=== PATIENT | male | born 1950 | race Caucasian/White ===

== ENCOUNTER 2017-09-13 11:04 | Observation (INO) | payer BC, MEDICARE ==
[2017-09-13] MEDS ORDERED: NITROGLYCERIN OINT 1 INCH/GM PACKET TOPICAL STA (11:30)
[2017-09-13] MEDS ORDERED: ASPIRIN 81 MG PO STA (11:30)
--- NOTE | 2017-09-13 11:33 | ED ---
General Adult HPI - General Chief complaint: Chest Pain Stated complaint: chest pain Time Seen by Provider: 09/13/17 11:20 Source: patient, family, RN notes reviewed Mode of arrival: wheelchair Limitations: no limitations - History of Present Illness Initial comments: Patient is a pleasant [age]-year-old male presenting to the emergency department with palpitations. Onset of symptoms was this morning and symptoms have near resolved at this point. Patient does have a history of similar symptoms years ago associated with atrial fibrillation. Patient did have an ablation twice approximately 15 years ago without any problems since that time. Patient states he may have had some mild discomfort associated earlier. Patient is symptom-free at this time however has felt fatigued today. - Related Data Home Medications Medication Instructions Recorded Confirmed Aspirin 81 mg PO DAILY 09/23/15 09/13/17 Atenolol [Tenormin] 50 mg PO HS 09/23/15 09/13/17 Losartan/Hydrochlorothiazide 1 tab PO DAILY 09/13/17 09/13/17 [Losartan-Hctz 100-25 mg Tab] Potassium 99 mg PO DAILY 09/13/17 09/13/17 amLODIPine [Norvasc] 10 mg PO DAILY 09/13/17 09/13/17 Allergies Allergy/AdvReac Type Severity Reaction Status Date / Time No Known Allergies Allergy Unverified 09/13/17 11:38 Review of Systems ROS Statement: Those systems with pertinent positive or pertinent negative responses have been documented in the HPI. ROS Other: All systems not noted in ROS Statement are negative. Constitutional: Denies: fever Eyes: Denies: eye pain ENT: Denies: ear pain Respiratory: Denies: cough, dyspnea Cardiovascular: Reports: chest pain, palpitations Endocrine: Reports: fatigue Gastrointestinal: Denies: abdominal pain Genitourinary: Denies: dysuria Musculoskeletal: Denies: back pain Skin: Denies: rash Neurological: Denies: weakness Past Medical History Past Medical History: Hypertension Additional Past Medical History / Comment(s): past hx. of an arrythmia History of Any Multi-Drug Resistant Organisms: None Reported Past Surgical History: Cardiac Ablation Additional Past Surgical History / Comment(s): colonoscopy Past Anesthesia/Blood Transfusion Reactions: No Reported Reaction Past Psychological History: No Psychological Hx Reported Smoking Status: Former smoker Past Alcohol Use History: None Reported Past Drug Use History: None Reported - Past Family History Mother Family Medical History: Cancer General Exam Limitations: no limitations General appearance: alert, in no apparent distress Head exam: Present: atraumatic Eye exam: Present: normal appearance, PERRL ENT exam: Present: normal oropharynx Neck exam: Present: normal inspection Respiratory exam: Present: normal lung sounds bilaterally. Absent: chest wall tenderness Cardiovascular Exam: Present: regular rate, normal rhythm, normal heart sounds Expanded Peripheral pulses: 2+: Radial (R), Radial (L), Dorsalis Pedis (R), Dorsalis Pedis (L) GI/Abdominal exam: Present: soft. Absent: tenderness Extremities exam: Present: normal inspection. Absent: pedal edema, calf tenderness Neurological exam: Present: alert Psychiatric exam: Present: normal affect, normal mood Skin exam: Present: normal color Course Vital Signs 09/13/17 09/13/17 09/13/17 11:08 11:21 11:50 Temperature 97.5 F L Pulse Rate 88 90 78 Respiratory 16 Rate Blood Pressure 159/81 165/79 146/87 O2 Sat by Pulse 98 98 99 Oximetry 09/13/17 09/13/17 12:50 13:50 Temperature Pulse Rate 82 86 Respiratory Rate Blood Pressure 163/88 167/88 O2 Sat by Pulse 98 98 Oximetry EKG Findings - EKG Comments: EKG Findings:: Normal sinus rhythm 84. [place] 172. QRS 88. QT 372. QTC 439. Normal axis. Normal QRS. No acute ST change. Medical Decision Making - Medical Decision Making Patient reexamined and resting comfortably in bed. Patient and family updated on results and plan. Case was discussed in detail with Dr. snow, who will admit for Dr. Simons. - Lab Data Result diagrams: 09/13/17 11:55 09/13/17 11:55 Lab Results 09/13/17 09/13/17 09/13/17 Range/Units 11:55 11:55 11:55 WBC 8.4 (3.8-10.6) k/uL RBC 5.09 (4.30-5.90) m/uL Hgb 15.0 (13.0-17.5) gm/dL Hct 44.6 (39.0-53.0) % MCV 87.5 (80.0-100.0) fL MCH 29.5 (25.0-35.0) pg MCHC 33.7 (31.0-37.0) g/dL RDW 14.3 (11.5-15.5) % Plt Count 232 (150-450) k/uL Neutrophils % 85 % Lymphocytes % 8 % Monocytes % 5 % Eosinophils % 1 % Basophils % 0 % Neutrophils # 7.2 (1.3-7.7) k/uL Lymphocytes # 0.7 L (1.0-4.8) k/uL Monocytes # 0.5 (0-1.0) k/uL Eosinophils # 0.1 (0-0.7) k/uL Basophils # 0.0 (0-0.2) k/uL PT (9.0-12.0) sec INR (<1.2) APTT (22.0-30.0) sec Sodium 138 (137-145) mmol/L Potassium 3.7 (3.5-5.1) mmol/L Chloride 101 (98-107) mmol/L Carbon Dioxide 26 (22-30) mmol/L Anion Gap 11 mmol/L BUN 18 (9-20) mg/dL Creatinine 0.78 (0.66-1.25) mg/dL Est GFR (MDRD) Af Amer >60 (>60 ml/min/1.73 sqM) Est GFR (MDRD) Non-Af >60 (>60 ml/min/1.73 sqM) Glucose 112 H (74-99) mg/dL Calcium 9.5 (8.4-10.2) mg/dL Magnesium 1.9 (1.6-2.3) mg/dL Total Bilirubin 0.6 (0.2-1.3) mg/dL AST 32 (17-59) U/L ALT 45 (21-72) U/L Alkaline Phosphatase 67 (38-126) U/L Total Creatine Kinase 153 (55-170) U/L CK-MB (CK-2) 1.4 (0.0-2.4) ng/mL CK-MB (CK-2) Rel Index 0.9 Troponin I <0.012 (0.000-0.034) ng/mL Total Protein 7.6 (6.3-8.2) g/dL Albumin 4.5 (3.5-5.0) g/dL TSH 1.330 (0.465-4.680) mIU/L Free T4 1.18 (0.78-2.19) ng/dL Free T3 pg/mL 5.0 (2.8-5.3) pg/ml 09/13/17 Range/Units 11:55 WBC (3.8-10.6) k/uL RBC (4.30-5.90) m/uL Hgb (13.0-17.5) gm/dL Hct (39.0-53.0) % MCV (80.0-100.0) fL MCH (25.0-35.0) pg MCHC (31.0-37.0) g/dL RDW (11.5-15.5) % Plt Count (150-450) k/uL Neutrophils % % Lymphocytes % % Monocytes % % Eosinophils % % Basophils % % Neutrophils # (1.3-7.7) k/uL Lymphocytes # (1.0-4.8) k/uL Monocytes # (0-1.0) k/uL Eosinophils # (0-0.7) k/uL Basophils # (0-0.2) k/uL PT 10.5 (9.0-12.0) sec INR 1.0 (<1.2) APTT 24.2 (22.0-30.0) sec Sodium (137-145) mmol/L Potassium (3.5-5.1) mmol/L Chloride (98-107) mmol/L Carbon Dioxide (22-30) mmol/L Anion Gap mmol/L BUN (9-20) mg/dL Creatinine (0.66-1.25) mg/dL Est GFR (MDRD) Af Amer (>60 ml/min/1.73 sqM) Est GFR (MDRD) Non-Af (>60 ml/min/1.73 sqM) Glucose (74-99) mg/dL Calcium (8.4-10.2) mg/dL Magnesium (1.6-2.3) mg/dL Total Bilirubin (0.2-1.3) mg/dL AST (17-59) U/L ALT (21-72) U/L Alkaline Phosphatase (38-126) U/L Total Creatine Kinase (55-170) U/L CK-MB (CK-2) (0.0-2.4) ng/mL CK-MB (CK-2) Rel Index Troponin I (0.000-0.034) ng/mL Total Protein (6.3-8.2) g/dL Albumin (3.5-5.0) g/dL TSH (0.465-4.680) mIU/L Free T4 (0.78-2.19) ng/dL Free T3 pg/mL (2.8-5.3) pg/ml - Radiology Data Radiology results: image reviewed (Chest x-ray shows no acute process.) Disposition Clinical Impression: Chest pain, Palpitations Disposition: ADMITTED IP TO THIS [facility] Referrals: Benito Garcia DO [Doctor of Osteopathic Medicine] - 1-2 days Decision Time: 14:21
[2017-09-13 12:06] LABS: Basophils % (A) 0 %; CH 30.1; CHCM 34.5; Eosinophils # (A) 0.1 k/uL (0-0.7); Eosinophils % (A) 1 %; HCT 44.6 % (39.0-53.0); HDW 2.61; Luc # (Auto) 0.08; Luc % (Auto) 1; Lymphocytes # (A) 0.7 k/uL (1.0-4.8); Lymphocytes % (A) 8 %; MCH 29.5 pg (25.0-35.0); MCHC 33.7 g/dL (31.0-37.0); MCV 87.5 fL (80.0-100.0); Mean Platelet Volume 6.8; Monocytes # (A) 0.5 k/uL (0-1.0); Monocytes % (A) 5 %; Neutrophils # (A) 7.2 k/uL (1.3-7.7); Neutrophils % (A) 85 %; RBC 5.09 m/uL (4.30-5.90); RDW 14.3 % (11.5-15.5); WBC 8.4 k/uL (3.8-10.6); WBC (Perox) 8.77
[2017-09-13 12:15] LABS: ALT 45 U/L (21-72); AST 32 U/L (17-59); Alkaline Phosphatase 67 U/L (38-126); Anion Gap 11 mmol/L; Blood Urea Nitrogen 18 mg/dL (9-20); Calcium 9.5 mg/dL (8.4-10.2); Carbon Dioxide 26 mmol/L (22-30); Chloride 101 mmol/L (98-107); Glucose 112 mg/dL (74-99); Magnesium 1.9 mg/dL (1.6-2.3); Non-African American GFR(MDRD) >60 (>60 ml/min/1.73 sqM); Potassium 3.7 mmol/L (3.5-5.1); Sodium 138 mmol/L (137-145); Total Bilirubin 0.6 mg/dL (0.2-1.3); Total Protein 7.6 g/dL (6.3-8.2)
[2017-09-13 12:22] LABS: Partial Thromboplastin Time 24.2 sec (22.0-30.0); Prothrombin Time 10.5 sec (9.0-12.0)
[2017-09-13 12:26] LABS: Creatine Kinase 153 U/L (55-170)
[2017-09-13 12:39] LABS: Creatine Kinase MB 1.4 ng/mL (0.0-2.4); Troponin I <0.012 ng/mL (0.000-0.034)
--- NOTE | 2017-09-13 14:12 | XR ---
EXAMINATION TYPE: XR chest 2V DATE OF EXAM: 09/13/2017 COMPARISON: Prior chest x-ray 04/01/2011 HISTORY: Chest pain, history of atrial fibrillation and ablation TECHNIQUE: Frontal and lateral views of the chest are obtained. FINDINGS: There are overlying cardiac leads and the patient is rotated. No evident airspace disease, pneumothorax, or pleural effusion. Cardiac mediastinal silhouette, pulmonary vascularity and rodrigue ar e stable. Flowing osteophytes anterior to the thoracic vertebral bodies could be due to diffuse idiop athic skeletal hyperostosis. Suspect there is a spinal curvature. Hyperinflation may be indicative of underlying COPD. IMPRESSION: No acute cardiopulmonary process.
[2017-09-13] MEDS ORDERED: NITROGLYCERIN SL TABS 0.4 MG TAB SUBLINGUAL PRN (14:21)
[2017-09-13 14:39] VITALS: RESP 18
[2017-09-13] MEDS: NITROGLYCERIN OINT 1 INCH/GM PACKET TOPICAL SCH ×2 (18:28→23:28)
[2017-09-13 19:04] LABS: Creatine Kinase 122 U/L (55-170)
[2017-09-13 19:16] LABS: Creatine Kinase MB 1.1 ng/mL (0.0-2.4); Troponin I <0.012 ng/mL (0.000-0.034)
[2017-09-13] MEDS ORDERED: ACETAMINOPHEN TAB 325 MG TAB PO PRN (20:17)
[2017-09-13] MEDS ORDERED: ATENOLOL 50 MG TAB PO SCH (21:00)
[2017-09-14 00:17] LABS: Creatine Kinase 124 U/L (55-170)
[2017-09-14 00:29] LABS: Creatine Kinase MB 1.2 ng/mL (0.0-2.4); Troponin I <0.012 ng/mL (0.000-0.034)
[2017-09-14] MEDS ORDERED: MELATONIN 5 MG TABLET PO PRN (03:05)
[2017-09-14] MEDS: NITROGLYCERIN OINT 1 INCH/GM PACKET TOPICAL SCH (06:05)
[2017-09-14 07:04] LABS: Basophils % (A) 0 %; CH 29.7; CHCM 34.1; Eosinophils # (A) 0.1 k/uL (0-0.7); Eosinophils % (A) 1 %; HCT 45.2 % (39.0-53.0); HDW 2.56; HGB 15.2 gm/dL (13.0-17.5); Luc # (Auto) 0.08; Luc % (Auto) 1; Lymphocytes # (A) 0.8 k/uL (1.0-4.8); Lymphocytes % (A) 11 %; MCH 29.4 pg (25.0-35.0); MCHC 33.6 g/dL (31.0-37.0); MCV 87.5 fL (80.0-100.0); Mean Platelet Volume 6.8; Monocytes # (A) 0.5 k/uL (0-1.0); Monocytes % (A) 7 %; Neutrophils # (A) 5.4 k/uL (1.3-7.7); Neutrophils % (A) 79 %; RBC 5.16 m/uL (4.30-5.90); RDW 13.9 % (11.5-15.5); WBC 6.9 k/uL (3.8-10.6); WBC (Perox) 6.78
[2017-09-14 07:13] LABS: Anion Gap 9 mmol/L; Blood Urea Nitrogen 15 mg/dL (9-20); Calcium 9.2 mg/dL (8.4-10.2); Carbon Dioxide 24 mmol/L (22-30); Chloride 105 mmol/L (98-107); Cholesterol 196 mg/dL (<200); Glucose 113 mg/dL (74-99); HDL Cholesterol 51 mg/dL (40-60); Non-African American GFR(MDRD) >60 (>60 ml/min/1.73 sqM); Potassium 3.9 mmol/L (3.5-5.1); Sodium 138 mmol/L (137-145)
--- NOTE | 2017-09-14 07:22 | HP ---
HISTORY AND PHYSICAL DATE OF ADMISSION: 09/13/2017 PRESENTING COMPLAINT: Heart fluttering. HISTORY OF PRESENTING COMPLAINT: This is a pleasant 67-year-old patient of Dr. Deleon who had an ablation about 10 to 15 years ago, he cannot exactly remember. Only the significant history is that of hypertension. This morning, felt a funny heart fluttering sensation. There was no dizziness. No lightheadedness, head started sweating, mild chest discomfort. No radiation. No waxing or waning for short lived. Because of the these symptoms, decided to come into the hospital. Initial EKG was unremarkable, admitted for the same. Patient was able to carry out his chores this morning. REVIEW OF SYSTEMS: CONSTITUTIONAL: None. HEENT: None. RESPIRATORY: None. CARDIOVASCULAR: As above. GASTROINTESTINAL: None. GENITOURINARY: None. MUSCULOSKELETAL: None. DERMATOLOGICAL: None. HEMATOLOGIC: None. LYMPHATIC: None. PSYCHIATRY: None. NEUROLOGICAL: None. PAST MEDICAL HISTORY: Atrial fibrillation with ablation, hypertension. PAST SURGICAL HISTORY: Cardiac ablation, tonsillectomy. SOCIAL HISTORY: Patient smoked for 7 years until the age of 25 one pack a day. No alcohol. FAMILY HISTORY: Skin and ovarian cancer. HOME MEDICATIONS: 1. Norvasc 10 mg a day. 2. Losartan/hydrochlorothiazide 100/25 one tablet p.o. daily. 3. Potassium 99 mg p.o. daily. 4. Tenormin 50 mg p.o. q.h.s. 5. Aspirin 81 mg p.o. daily. ALLERGIES: None. PHYSICAL EXAMINATION: Temperature 97.7, pulse 92, respirations 18, blood pressure 139/88, pulse 94% on room air. GENERAL APPEARANCE: Well built, BMI 32.3, lying in bed comfortable. EYES: Pupils normal. HEENT: Oral cavity normal. NECK: JVD not raised. Mass not palpable. RESPIRATORY: Effort normal. Lungs are clear. CARDIOVASCULAR: First and second sounds normal, no edema. ABDOMEN: Soft, nontender. Liver and spleen not palpable. LYMPHATIC: No lymph nodes palpable in neck or axillae. PSYCHIATRY: Alert and oriented x3. Mood and affect normal. NEUROLOGICAL: Pupils equal. Cranial nerves grossly intact. Power and sensation grossly intact. INVESTIGATIONS: White count 8.4, hemoglobin 15, potassium 3.7. BUN creatinine are normal. Troponin x2 negative. TSH is normal. EKG normal sinus rhythm. ASSESSMENT: 1. This is a patient who presents with the symptoms of palpitations, had an ablation 15 years ago. This could be paroxysmal atrial fibrillation, but nothing has been picked up at now. 2. Obesity, body mass index 32.3. 3. Essential hypertension, more on control. PLAN: Home medications will be resumed. Serial cardiac enzymes are in place. Cardiology was consulted. Care was discussed with the patient. The patient's TSH is normal. The patient should see a dietitian as an outpatient for weight loss measures. MMODL / IJN: [id number] /
[2017-09-14] MEDS ORDERED: ASPIRIN 81 MG PO SCH (09:00)
[2017-09-14] MEDS ORDERED: LOSARTAN-HCTZ 50-12.5 MG 1 EACH TAB PO SCH (09:00)
[2017-09-14] MEDS ORDERED: NON-FORMULARY DRUG (Potassium [Potassium] 99 MG) PO SCH (09:00)
[2017-09-14] MEDS ORDERED: ASPIRIN 325 MG TAB PO SCH (09:00)
[2017-09-14] MEDS ORDERED: ENOXAPARIN 40 MG/0.4 ML SYRINGE SQ SCH (09:00)
[2017-09-14] MEDS ORDERED: amLODIPine 10 MG TAB PO SCH (09:00)
[2017-09-14] MEDS ORDERED: ATORVASTATIN 20 MG TAB PO SCH (09:00)
--- NOTE | 2017-09-14 09:52 | CONS ---
CONSULTATION ATTENDING PHYSICIAN: Dr. Simons Mr. Adame is a 67-year-old male known history of coronary disease, history of atrial fibrillation, hypertension, who has underwent ablation of his atrial fibrillation performed an 2002. He was last seen in our office in air November of this year. He has a history of CAD by a CT angiogram performed in 2010 when he had a mild disease in the LAD. He had a stress test in October of 2016. At that time there was no evidence of stress-induced ischemia. Yesterday while doing the chores at home, he felt different. He felt some palpitation with minimal tightness in the chest. He checked his blood pressure and he found some irregularities. Because of those symptoms, he came into the emergency room and subsequently admitted. He has been active physically without any associated symptoms. His breathing has been stable. He denies any dizziness or syncope. No PND, orthopnea, or peripheral edema. His coronary risk factors are remarkable for hypertension. He is nondiabetic and nonsmoker. His left ventricular systolic function in the past has been stable. He is hyperlipidemic. MEDICATION: His medications at home include amlodipine 10 mg daily, losartan HCT 100-25 mg daily, potassium, Tenormin 50 mg daily, and aspirin once a day. REVIEW OF SYSTEMS: RESPIRATORY SYSTEM: He has no recent wheezing. No cough. No history of documented obstructive lung disease. GI SYSTEM: No recent GI bleeding. No peptic ulcer disease. SYSTEM: No dysuria or hematuria. NERVOUS SYSTEM: No history of stroke or seizure. PHYSICAL EXAMINATION: A 67-year-old male, alert, oriented, in no apparent distress. Blood pressure 141/70 with a heart in the 80s. HEAD: Normocephalic. EYES: Sclerae anicteric. NECK: Good upstroke. No bruit. No jugular venous distention. LUNGS: Clear to auscultation. HEART: Regular rhythm S1, S2. No S3 with systolic murmur heard at the base. No diastolic murmur. No rub. ABDOMEN: Soft, nontender. Positive bowel sounds. No organomegaly. EXTREMITIES: No edema. Intact distal pulses. LAB DATA: BUN and creatinine 15 and 0.77, potassium 3.9, hemoglobin 15.2, white blood cell of 6.9, troponin less than 0.012 for 3 samples. Cholesterol 196, LDL of 128. His thyroid function tests are normal. His EKG was sinus mechanism with no evidence of atrial fibrillation and no acute changes. His chest x-ray shows no evidence of infiltrate. IMPRESSION: 1. Possible arrhythmia in a patient with prior history of atrial fibrillation. There is no documentation of recurrent atrial fibrillation at this point. 2. Symptoms of vague chest discomfort of unclear etiology with no evidence to suggest acute coronary syndrome. 3. History of hypertension. 4. Hyperlipidemia. 5. History of coronary disease by CT angiogram. RECOMMENDATION: From the cardiac standpoint, I will proceed with a stress echocardiogram. I will also obtain an echocardiogram with Doppler. I will initiate treatment with a statin. Depending on the results of this testing, further recommendation will be made. Thank you for this consult. We will follow with you. RAFAELA / IJN: [id number] /
[2017-09-14 11:48] VITALS: BP 153/83; PULSE 84; TEMP 97.6
--- NOTE | 2017-09-14 12:12 | ECHOS ---
Referral Reason:chest pain MEASUREMENTS -------- HEIGHT: 180.3 cm WEIGHT: 104.8 kg BP: 148/70 FINDINGS -------- The patient received intravenous dobutamine in 5 min (low dose 5mcg/kg/min) and 3 minute stages (>5mcg/kg/min) to a maximum of XXmcg/kg/min plus XX mg atropine. Max Heart Rate: 133 % of Max Predicted Heart Rate: 85% Rest Heart Rate: 90 Rest BP: 148/70 Max BP: 165/95 Mets Achieved: 8.5 The test was stopped because the target heart rate was achieved. Sinus rhythm. In response to stress, the ECG showed no ST-T wave changes . In response to stress, the ECG showed no ST-T wave changes . There were normal blood pressure and heart rate responses to stress. LV size, wall thickness and systolic function are normal, with an EF of 60%. At recovery dobutamine stress, there was appropriate augmentation of systolic function of all segments CONCLUSIONS -------- 1. The patient received intravenous dobutamine in 5 min (low dose 5mcg/kg/min) and 3 minute stages (>5mcg/kg/min) to a maximum of XXmcg/kg/min plus XX mg atropine. 2. In response to stress, the ECG showed no ST-T wave changes . 3. No 2D echocardiographic evidence of inducible ischemia to achieved workload. AUTOMATIC BLOCKER: Eber Pabon RDCS MTDD
--- NOTE | 2017-09-14 15:22 | DS ---
DISCHARGE SUMMARY DATE OF ADMISSION: 09/13/17. DATE OF DISCHARGE: 09/14/17. FINAL DIAGNOSES: 1. Palpitation, could be paroxysmal atrial fibrillation or arrhythmias. 2. Obesity, BMI 32.3. 3. Essential hypertension. HOSPITAL COURSE: This is a patient with prior history of ablation and atrial fibrillation, presents with some palpitation. Troponin's were negative. LDL came back at [address] Simeon, underwent a stress echocardiogram that was unremarkable and they okayed the patient to be discharged. On examination, lungs are clear. CARDIOVASCULAR: First and second sounds normal. If the patient has these symptoms coming back again she may need an outpatient Holter monitor. DISCHARGE MEDICATIONS: 1. Aspirin 81 mg a day. 2. Tenormin 50 mg a day. 3. Losartan/hydrochlorothiazide 100/25 1 tab a day. 4. Potassium 99 mg p.o. daily. 5. Norvasc 10 mg p.o. daily. 6. Lipitor 20 mg p.o. daily. Follow up with Dr. Simeon in 10 days. Follow up with Dr. Simons in 1 week. MMODL / IJN: [id number] /
== END 2017-09-14 14:32 | disposition home or self-care (01) ==
LOC: EC 11:04 → 3OBS 14:21
PROVIDERS: ADMIT Hospitalist; ATTEND Hospitalist
DX: R00.2 Palpitations (principal); R07.89 Other chest pain; I10 Essential (primary) hypertension; Z86.79 Personal history of other diseases of the circulatory system; Z68.32 Body mass index [BMI] 32.0-32.9, adult; E66.9 Obesity, unspecified; Z79.82 Long term (current) use of aspirin; Z79.899 Other long term (current) drug therapy; Z87.891 Personal history of nicotine dependence
CPT/HCPCS: 99285 ×2; 96372; 36415; 93005; 93017; 84439; 84481; 80061; 80053; 80048; 82550; 82553; 83735; 84443; 84484; 85025 ×2; 85610; 85730; 71020; G0378 ×2; C8928; C8929; J1650; Q9957; 93306; 93350

== ENCOUNTER 2018-11-17 11:29 | Inpatient (IN) | payer MEDICARE ==
[2018-11-17] MEDS ORDERED: ASPIRIN 81 MG PO STA (11:37)
[2018-11-17] MEDS ORDERED: NITROGLYCERIN OINT 1 INCH/GM PACKET TOPICAL STA (11:37)
--- NOTE | 2018-11-17 11:40 | ED ---
General Adult HPI - General Stated complaint: cardiac issues Time Seen by Provider: 11/17/18 11:29 Source: RN notes reviewed - History of Present Illness Initial comments: This is a 68-year-old male who presents emergency department stating that he had a history of atrial fibrillation about 10 years ago he had ablated hasn't had any problems since per patient states he woke up this morning felt his heart racing he took his pulse and was very fast decided come and be evaluated. Patient states he had little bit of chest pain associated with it but nothing too bad. Patient states it did not radiate anywhere to his neck, back. Patient denied any diaphoretic episodes. Patient seems mildly short of breath. Patient denies any nausea. Patient denied abdominal pain patient denies any vomiting or diarrhea recently. Patient states he has had patient denies any lightheadedness dizziness or near syncopal episode. Patient denies any leg swelling or calf tenderness. - Related Data Home Medications Medication Instructions Recorded Confirmed Aspirin 81 mg PO DAILY 09/23/15 11/17/18 Atenolol [Tenormin] 50 mg PO HS 09/23/15 11/17/18 Losartan/Hydrochlorothiazide 1 tab PO DAILY 09/13/17 11/17/18 [Losartan-Hctz 100-25 mg Tab] amLODIPine [Norvasc] 10 mg PO DAILY 09/13/17 11/17/18 Allergies Allergy/AdvReac Type Severity Reaction Status Date / Time No Known Allergies Allergy Verified 11/17/18 11:56 Review of Systems ROS Statement: Those systems with pertinent positive or pertinent negative responses have been documented in the HPI. ROS Other: All systems not noted in ROS Statement are negative. Past Medical History Past Medical History: Deep Vein Thrombosis (DVT), Hypertension, Pneumonia Additional Past Medical History / Comment(s): past hx. of an arrythmia STATED "WENT INTO AFIB AFTER A COLONOSCOPY" History of Any Multi-Drug Resistant Organisms: None Reported Past Surgical History: Cardiac Ablation, Tonsillectomy Additional Past Surgical History / Comment(s): colonoscopy, ABLATION X2 Past Anesthesia/Blood Transfusion Reactions: No Reported Reaction Additional Past Anesthesia/Blood Transfusion Reaction / Comment(s): "WENT INTO AFIB AFTER COLONOSCOPY" Smoking Status: Former smoker - Past Family History Sister(s) Family Medical History: Cancer Additional Family Medical History / Comment(s): BREAST CANCER Father Family Medical History: Coronary Artery Disease (CAD), Diabetes Mellitus Mother Family Medical History: Cancer Additional Family Medical History / Comment(s): SKIN/OVARIAN General Exam - General Exam Comments Initial Comments: GENERAL: Patient is well-developed and well-nourished. Patient is nontoxic and well- hydrated and is in mild distress. ENT: Neck is soft and supple. No significant lymphadenopathy is noted. Oropharynx is clear. Moist mucous membranes. Neck has full range of motion without eliciting any pain. EYES: The sclera were anicteric and conjunctiva were pink and moist. Extraocular movements were intact and pupils were equal round and reactive to light. Eyelids were unremarkable. PULMONARY: Unlabored respirations. Good breath sounds bilaterally. No audible rales rhonchi or wheezing was noted. CARDIOVASCULAR: Patient is tachycardic and has an irregular rate and rhythm ABDOMEN: Soft and nontender with normal bowel sounds. No palpable organomegaly was noted. There is no palpable pulsatile mass. SKIN: Skin is clear with no lesions or rashes and otherwise unremarkable. NEUROLOGIC: Patient is alert and oriented x3. Cranial nerves II through XII are grossly intact. Motor and sensory are also intact. Normal speech, volume and content. Symmetrical smile. MUSCULOSKELETAL: Normal extremities with adequate strength and full range of motion. No lower extremity swelling or edema. No calf tenderness. LYMPHATICS: No significant lymphadenopathy is noted PSYCHIATRIC: Normal psychiatric evaluation. Course Vital Signs 11/17/18 11:41 Temperature 98.4 F Pulse Rate 84 Respiratory 18 Rate Blood Pressure 124/88 O2 Sat by Pulse 97 Oximetry Medical Decision Making - Medical Decision Making EKG shows atrial fibrillation at 89 bpm versus 90 QT interval 348 QTC is 423. EKG shows no ST segment elevation or depression or T wave abnormalities are noted. I started the patient on heparin. I spoke with Dr. Baker he agreed to admit the patient admitted the patient I consulted cardiology and I continue the heparin on the floor. - Lab Data Result diagrams: 11/17/18 11:41 11/17/18 11:41 Lab Results 11/17/18 11/17/18 11/17/18 Range/Units 11:41 11:41 11:41 WBC 9.7 (3.8-10.6) k/uL RBC 5.34 (4.30-5.90) m/uL Hgb 16.1 (13.0-17.5) gm/dL Hct 46.6 (39.0-53.0) % MCV 87.1 (80.0-100.0) fL MCH 30.2 (25.0-35.0) pg MCHC 34.7 (31.0-37.0) g/dL RDW 12.9 (11.5-15.5) % Plt Count 246 (150-450) k/uL Neutrophils % 83 % Lymphocytes % 9 % Monocytes % 5 % Eosinophils % 1 % Basophils % 0 % Neutrophils # 8.1 H (1.3-7.7) k/uL Lymphocytes # 0.9 L (1.0-4.8) k/uL Monocytes # 0.5 (0-1.0) k/uL Eosinophils # 0.1 (0-0.7) k/uL Basophils # 0.0 (0-0.2) k/uL PT (9.0-12.0) sec INR (<1.2) APTT (22.0-30.0) sec Sodium 138 (137-145) mmol/L Potassium 4.1 (3.5-5.1) mmol/L Chloride 105 (98-107) mmol/L Carbon Dioxide 23 (22-30) mmol/L Anion Gap 10 mmol/L BUN 15 (9-20) mg/dL Creatinine 0.86 (0.66-1.25) mg/dL Est GFR (CKD-EPI)AfAm >90 (>60 ml/min/1.73 sqM) Est GFR (CKD-EPI)NonAf >90 (>60 ml/min/1.73 sqM) Glucose 120 H (74-99) mg/dL Calcium 9.6 (8.4-10.2) mg/dL Magnesium 1.9 (1.6-2.3) mg/dL Total Bilirubin 0.9 (0.2-1.3) mg/dL AST 27 (17-59) U/L ALT 34 (21-72) U/L Alkaline Phosphatase 61 (38-126) U/L Total Creatine Kinase 103 (55-170) U/L CK-MB (CK-2) 1.1 (0.0-2.4) ng/mL CK-MB (CK-2) Rel Index 1.1 Troponin I <0.012 (0.000-0.034) ng/mL Total Protein 7.3 (6.3-8.2) g/dL Albumin 4.4 (3.5-5.0) g/dL 11/17/18 Range/Units 12:30 WBC (3.8-10.6) k/uL RBC (4.30-5.90) m/uL Hgb (13.0-17.5) gm/dL Hct (39.0-53.0) % MCV (80.0-100.0) fL MCH (25.0-35.0) pg MCHC (31.0-37.0) g/dL RDW (11.5-15.5) % Plt Count (150-450) k/uL Neutrophils % % Lymphocytes % % Monocytes % % Eosinophils % % Basophils % % Neutrophils # (1.3-7.7) k/uL Lymphocytes # (1.0-4.8) k/uL Monocytes # (0-1.0) k/uL Eosinophils # (0-0.7) k/uL Basophils # (0-0.2) k/uL PT 10.0 (9.0-12.0) sec INR 0.9 (<1.2) APTT 24.8 (22.0-30.0) sec Sodium (137-145) mmol/L Potassium (3.5-5.1) mmol/L Chloride (98-107) mmol/L Carbon Dioxide (22-30) mmol/L Anion Gap mmol/L BUN (9-20) mg/dL Creatinine (0.66-1.25) mg/dL Est GFR (CKD-EPI)AfAm (>60 ml/min/1.73 sqM) Est GFR (CKD-EPI)NonAf (>60 ml/min/1.73 sqM) Glucose (74-99) mg/dL Calcium (8.4-10.2) mg/dL Magnesium (1.6-2.3) mg/dL Total Bilirubin (0.2-1.3) mg/dL AST (17-59) U/L ALT (21-72) U/L Alkaline Phosphatase (38-126) U/L Total Creatine Kinase (55-170) U/L CK-MB (CK-2) (0.0-2.4) ng/mL CK-MB (CK-2) Rel Index Troponin I (0.000-0.034) ng/mL Total Protein (6.3-8.2) g/dL Albumin (3.5-5.0) g/dL Disposition Clinical Impression: Atrial fibrillation Disposition: ADMITTED IP TO THIS HOSP Referrals: Choco Biggs DO [Primary Care Provider] - 1-2 days Time of Disposition: 13:36
[2018-11-17 12:07] LABS: Basophils % (A) 0 %; Eosinophils # (A) 0.1 k/uL (0-0.7); Eosinophils % (A) 1 %; HCT 46.6 % (39.0-53.0); HGB 16.1 gm/dL (13.0-17.5); Lymphocytes # (A) 0.9 k/uL (1.0-4.8); Lymphocytes % (A) 9 %; MCH 30.2 pg (25.0-35.0); MCHC 34.7 g/dL (31.0-37.0); MCV 87.1 fL (80.0-100.0); Mean Platelet Volume 6.5; Monocytes # (A) 0.5 k/uL (0-1.0); Monocytes % (A) 5 %; Neutrophils # (A) 8.1 k/uL (1.3-7.7); Neutrophils % (A) 83 %; Platelet Count 246 k/uL (150-450); RBC 5.34 m/uL (4.30-5.90); RDW 12.9 % (11.5-15.5); WBC 9.7 k/uL (3.8-10.6)
[2018-11-17] MEDS ORDERED: HEPARIN SODIUM,PORCINE 5,000 UNIT/ML 1 ML VIAL IV ONE (12:15)
[2018-11-17 12:25] LABS: ALT 34 U/L (21-72); AST 27 U/L (17-59); Albumin 4.4 g/dL (3.5-5.0); Alkaline Phosphatase 61 U/L (38-126); Anion Gap 10 mmol/L; Blood Urea Nitrogen 15 mg/dL (9-20); Calcium 9.6 mg/dL (8.4-10.2); Carbon Dioxide 23 mmol/L (22-30); Chloride 105 mmol/L (98-107); Glucose 120 mg/dL (74-99); Magnesium 1.9 mg/dL (1.6-2.3); Potassium 4.1 mmol/L (3.5-5.1); Sodium 138 mmol/L (137-145); Total Bilirubin 0.9 mg/dL (0.2-1.3); Total Protein 7.3 g/dL (6.3-8.2)
[2018-11-17] MEDS: HEPARIN SOD,PORK IN 0.45% NACL 25,000 UNIT in 0.45% NACL 1 250ML.BAG IV SCH (12:30)
[2018-11-17 12:31] LABS: Creatine Kinase 103 U/L (55-170)
--- NOTE | 2018-11-17 12:44 | XR ---
EXAMINATION TYPE: XR chest 2V DATE OF EXAM: 11/17/2018 COMPARISON: Prior chest x-ray 09/13/2017 HISTORY: Chest pain TECHNIQUE: Frontal and lateral views of the chest are obtained. FINDINGS: There is no focal air space opacity, pleural effusion, or pneumothorax seen. Minimal subse gmental atelectatic change or probable scarring present at the lung bases. The cardiac silhouette siz e is within normal limits. Patient is rotated. There are overlying cardiac leads. The osseous structu res are intact. IMPRESSION: No acute cardiopulmonary process.
[2018-11-17 12:45] LABS: Creatine Kinase MB 1.1 ng/mL (0.0-2.4); Troponin I <0.012 ng/mL (0.000-0.034)
[2018-11-17 12:58] LABS: INR 0.9 (<1.2); Partial Thromboplastin Time 24.8 sec (22.0-30.0)
[2018-11-17] MEDS ORDERED: NITROGLYCERIN SL TABS 0.4 MG TAB SUBLINGUAL PRN (13:36)
[2018-11-17 14:13] LABS: Appearance,Urine Clear (Clear); Bilirubin,Urine Negative (Negative); Blood,Urine Negative (Negative); Color,Urine Light Yellow; Glucose,Urine (UA) Negative (Negative); Ketones,Urine Negative (Negative); Leukocyte Esterase,Urine Negative (Negative); Nitrite,Urine Negative (Negative); Protein,Urine Negative (Negative); Specific Gravity,Urine 1.005 (1.001-1.035); Urobilinogen,Urine <2.0 mg/dL (<2.0)
[2018-11-17 18:44] LABS: Creatine Kinase 75 U/L (55-170)
[2018-11-17 18:57] LABS: Creatine Kinase MB 0.9 ng/mL (0.0-2.4); Troponin I <0.012 ng/mL (0.000-0.034)
[2018-11-17] MEDS ORDERED: ACETAMINOPHEN TAB 325 MG TAB PO STA (19:31)
--- NOTE | 2018-11-17 23:16 | P.HPIM ---
History of Present Illness H&P Date: 11/17/18 Chief Complaint: Palpitations/feeling funny in the chest Patient is a 68-year-old male with a known history of atrial fibrillation status post ablation about 15 years ago, hypertension and also history of DVT came to ER with complaints of heart racing of fast and feeling funny in the chest started this morning. Patient has been having flulike symptoms on and off for the past one half month. Patient will call day yesterday with painting and woke up in the morning with heart racing of fast and patient decided to come to ER for evaluation. Denied any complaints of chest pain. No radiation. Patient does have mild short of breath. No nausea vomiting. No diarrhea. No abdominal pain. No headache or dizziness or lightheadedness. No leg swelling. No orthopnea. Patient says that since his ablation never had any problems his heart. No history of coronary artery disease. Does have previous history of smoking and polysubstance use several years ago. Chest x-ray showed no acute cardio pulmonary process. EKG showed atrial fibrillation with ventricular rate of 89 Troponin 2 negative. UA negative. Patient does take atenolol, amlodipine, losartan/hydrochlorothiazide for blood pressure at home. Review of Systems Constitutional: Patient denies any fever or chills . No generalized weakness or weight loss. Abdomen: Patient denied nausea vomiting and diarrhea and abdominal pain. Cardiovascular: Patient denies any chest pain or short of breath. Patient does have palpitations. Respiratory: patient denied any cough is from production. No shortness of breath Neurologic: Patient denied any numbness or tingling headache. Musculoskeletal: Patient denies any complaints of joint swelling or deformity. Skin: Negative Psychiatric: Negative Endocrine: No heat or cold intolerance. No recent weight gain. Genitourinary: No dysuria or hematuria. All other 14 point ROS negative except the above Past Medical History Past Medical History: Atrial Fibrillation, Deep Vein Thrombosis (DVT), Hypertension, Pneumonia Additional Past Medical History / Comment(s): stress test 2017, past falls(rib fx), past lt leg broken-was in traction and had body cast., varicose veins. pt stated has had a pne vaccine but not sure of date, newswriter unable to verify date at time of this admit. History of Any Multi-Drug Resistant Organisms: None Reported Past Surgical History: Cardiac Ablation, Tonsillectomy Additional Past Surgical History / Comment(s): colonoscopy, ABLATION X2, 1970's sx on testical r/t epididymitis, "procedure for ruptured varicose vein". Past Anesthesia/Blood Transfusion Reactions: No Reported Reaction Additional Past Anesthesia/Blood Transfusion Reaction / Comment(s): "WENT INTO [facility] AFTER COLONOSCOPY" Smoking Status: Former smoker - Past Family History Sister(s) Family Medical History: Cancer Additional Family Medical History / Comment(s): BREAST CANCER Father Family Medical History: Coronary Artery Disease (CAD), Diabetes Mellitus Mother Family Medical History: Cancer Additional Family Medical History / Comment(s): SKIN/OVARIAN Medications and Allergies Home Medications Medication Instructions Recorded Confirmed Type Aspirin 81 mg PO DAILY 09/23/15 11/17/18 History Atenolol [Tenormin] 50 mg PO HS 09/23/15 11/17/18 History Losartan/Hydrochlorothiazide 1 tab PO DAILY 09/13/17 11/17/18 History [Losartan-Hctz 100-25 mg Tab] amLODIPine [Norvasc] 10 mg PO DAILY 09/13/17 11/17/18 History Allergies Allergy/AdvReac Type Severity Reaction Status Date / Time No Known Allergies Allergy Verified 11/17/18 11:56 Physical Exam Vitals: Vital Signs Temp Pulse Pulse Resp BP BP Pulse Ox 11/17/18 21:00 76 16 99/54 96 11/17/18 20:46 98.7 F 87 18 143/87 99 11/17/18 17:27 79 13 126/52 95 11/17/18 14:48 97.6 F 74 13 115/75 97 11/17/18 13:41 71 18 127/83 95 11/17/18 11:41 98.4 F 84 18 124/88 97 Intake and Output 11/17/18 11/17/18 11/18/18 14:59 22:59 06:59 Other: Weight 102.058 kg PHYSICAL EXAMINATION: Patient is lying in the bed comfortably, no acute distress, awake alert and oriented.. HEENT: Normocephalic. Neck is supple. Pupils reactive. Nostrils clear. Oral cavity is moist. Ears reveal no drainage. Neck reveals no JVD, carotid bruits, or thyromegaly. CHEST EXAMINATION: Trachea is central. Symmetrical expansion. Lung ramires clear to auscultation and percussion. CARDIAC: Normal S1, S2 with no gallops. No murmurs ABDOMEN: Soft. Bowel sounds normal. No organomegaly. No abdominal bruits. Extremities: reveal no edema. No clubbing or cyanosis Neurologically awake, alert, oriented x3 with well-coordinated movements. No focal deficits noted Skin: No rash or skin lesions. Psychiatric: Coperative. Nonsuicidal Musculoskeletal: No joint swelling or deformity. Normal range of motion. Results CBC & Chem 7: 11/17/18 11:41 11/17/18 11:41 Labs: Abnormal Lab Results - Last 24 Hours (Table) 11/17/18 11/17/18 Range/Units 11:41 11:41 Neutrophils # 8.1 H (1.3-7.7) k/uL Lymphocytes # 0.9 L (1.0-4.8) k/uL Glucose 120 H (74-99) mg/dL Thrombosis Risk Factor Assmnt - DVT/VTE Prophylaxis DVT/VTE Prophylaxis: Pharmacologic Prophylaxis ordered - Choose All That Apply Each Risk Factor Represents 2 Points: Age 61-74 years Thrombosis Risk Factor Assessment Total Risk Factor Score: 2 Thrombosis Risk Factor Assessment Level: Low Risk Assessment and Plan Assessment: Atrial atrial fibrillation with slightly increased ventricular rate History of A. fib status post ablation 15 years ago Hypertension History of DVT Previous history of smoking DVT prophylaxis patient is already on heparin drip Plan: Patient will be continued on telemetry monitoring. Serial EKGs and troponins. Patient will be continued on heparin drip and continue with beta blockers. Cardiology was consulted. We will hold amlodipine and losartan/ hydrochlorothiazide since a blood pressure is within normal limits. Continue to monitor closely. Further recommendations based on the clinical course. Time with Patient: Greater than 30
[2018-11-18 00:28] LABS: Creatine Kinase MB 0.8 ng/mL (0.0-2.4); Troponin I 0.02 ng/mL (0.000-0.034)
[2018-11-18] MEDS ORDERED: METOPROLOL TARTRATE 25 MG TAB PO SCH (09:00)
[2018-11-18] MEDS ORDERED: ASPIRIN 325 MG TAB PO SCH (09:00)
[2018-11-18 09:48] VITALS: RESP 18
[2018-11-18 11:11] VITALS: BP 151/75; PULSE 76; TEMP 98.2
[2018-11-18] MEDS: HEPARIN SOD,PORK IN 0.45% NACL 25,000 UNIT in 0.45% NACL 1 250ML.BAG IV SCH (11:23)
--- NOTE | 2018-11-18 12:02 | CONS ---
CONSULTATION Mr. Capellan is a 68-year-old gentleman with history of hypertension, paroxysmal atrial fibrillation, status post ablation more than 15 years ago, comes to hospital complaining of palpitations. These palpitations have been going on for several hours prior to coming in, was found to be in atrial fibrillation with controlled ventricular rate. Admitted to hospital on IV heparin and Lopressor. He converted to sinus rhythm and has remained in sinus rhythm. At the time of my evaluation this morning, he appears comfortable at rest, free of symptoms, and so far his workup had been negative. Troponins are negative. He had an echo the results are pending at this time. The plan at this stage is to start him on Eliquis 5 mg b.i.d. Continue the beta blockers. Review the echo and discharge him home and pursue his followup in the outpatient setting. I will do a stress test on him and do a monitor down the road. PAST MEDICAL HISTORY: Significant for atrial fibrillation, status post ablation, hypertension. CURRENT MEDICATIONS: At home include Norvasc 10 q. daily, losartan, hydrochlorothiazide 100/25 q. daily, Tenormin 50 q. daily and aspirin. ALLERGIES: There are no known drug allergies. FAMILY HISTORY: Negative for premature coronary artery disease. SOCIAL HISTORY: Negative for smoking, EtOH abuse, or drug abuse. REVIEW OF SYSTEMS: HEENT is unremarkable. CARDIAC: As described above. RESPIRATORY: Negative. GI: Negative. GENITOURINARY: Negative. ALLERGY/IMMUNOLOGY: Negative. SKIN: Negative. MUSCULOSKELETAL: Negative. ENDOCRINE: Negative. DERM: Negative. CONSTITUTIONAL: Negative. ONCOLOGICAL: Negative. The rest of the system review is not relevant. PHYSICAL EXAM: Patient is comfortable at rest. Vital signs are stable. There is no jugular venous distention. Carotid upstroke is normal. There is no bruit. Chest exam reveals good air entry bilaterally. Heart exam reveals first and second heart sounds. No gallop. No murmur. No rub. Abdomen is soft, nontender. Exam of the extremities did not reveal any edema. Peripheral pulses are felt. LABS: Showed that the TSH is normal. Cardiac enzymes are normal. Hemoglobin is normal at 16.1, platelet count is 246. Initial EKG showed atrial fibrillation. ASSESSMENT: 1. Paroxysmal atrial fibrillation. 2. Hypertension. PLAN: Will stop the heparin. Start him on Eliquis 5 b.i.d. Review the echo. Hopefully home tomorrow. MMODL / IJN: [id number] /
[2018-11-18] MEDS ORDERED: APIXABAN 5 MG TAB PO SCH (12:30)
--- NOTE | 2018-11-18 22:25 | P.DS ---
Providers Date of admission: 11/17/18 13:36 Expected date of discharge: 11/18/18 Attending physician: Miller Baker Consults: 11/17/18 13:36 Consult Physician Urgent Consulting Provider: [facility] Consult Reason/Comments: A. fib new onset Do you want consulting provider notified?: Yes Primary care physician: Choco Proctor Hospital Course: Discharge diagnosis Atrial atrial fibrillation with slightly increased ventricular rate. Rate controlled now. Started on anticoagulation History of A. fib status post ablation 15 years ago Hypertension History of DVT Previous history of smoking DVT prophylaxis Hospital course Patient is a 68-year-old male with a known history of atrial fibrillation status post ablation about 15 years ago, hypertension and also history of DVT came to ER with complaints of heart racing of fast and feeling funny in the chest started this morning. Patient has been having flulike symptoms on and off for the past one half month. Patient will call day yesterday with painting and woke up in the morning with heart racing of fast and patient decided to come to ER for evaluation. Denied any complaints of chest pain. No radiation. Patient does have mild short of breath. No nausea vomiting. No diarrhea. No abdominal pain. No headache or dizziness or lightheadedness. No leg swelling. No orthopnea. Patient says that since his ablation never had any problems his heart. No history of coronary artery disease. Does have previous history of smoking and polysubstance use several years ago. Chest x-ray showed no acute cardio pulmonary process. EKG showed atrial fibrillation with ventricular rate of 89 Troponin 2 negative. UA negative. Patient does take atenolol, amlodipine, losartan/hydrochlorothiazide for blood pressure at home. 11/18/2018 Patient denied any complaints of chest pain or shortness of breath. No dizziness or lightheadedness. Patient was converted back to sinus rhythm while in the ER. Seen by cardiology and recommended 2-D echocardiogram and started on anticoagulation in the form of eliquis. Heparin has been discontinued. Patient is stable to be discharged home. PHYSICAL EXAMINATION: Patient is lying in the bed comfortably, no acute distress, awake alert and oriented.. HEENT: Normocephalic. Neck is supple. Pupils reactive. Nostrils clear. Oral cavity is moist. Ears reveal no drainage. Neck reveals no JVD, carotid bruits, or thyromegaly. CHEST EXAMINATION: Trachea is central. Symmetrical expansion. Lung ramires clear to auscultation and percussion. CARDIAC: Normal S1, S2 with no gallops. No murmurs ABDOMEN: Soft. Bowel sounds normal. No organomegaly. No abdominal bruits. Extremities: reveal no edema. No clubbing or cyanosis Neurologically awake, alert, oriented x3 with well-coordinated movements. No focal deficits noted Skin: No rash or skin lesions. Psychiatric: Coperative. Nonsuicidal Musculoskeletal: No joint swelling or deformity. Normal range of motion. . Vital Signs - 24 hr 11/18/18 11/18/18 11/18/18 00:00 04:00 08:00 Temperature 98.3 F 98.1 F Pulse Rate [ 70 82 90 English Professor ] Respiratory 16 16 18 Rate Blood Pressure 101/59 137/66 156/75 [Right Arm Supine] O2 Sat by Pulse 97 96 96 Oximetry 11/18/18 11:11 Temperature 98.2 F Pulse Rate [ 76 English Professor ] Respiratory 18 Rate Blood Pressure 151/75 [Right Arm Supine] O2 Sat by Pulse 97 Oximetry Patient Condition at Discharge: Stable Plan - Discharge Summary Discharge Rx Participant: No New Discharge Prescriptions: New Apixaban [Eliquis] 5 mg PO BID #60 tab Continue Aspirin 81 mg PO DAILY Atenolol [Tenormin] 50 mg PO HS amLODIPine [Norvasc] 10 mg PO DAILY Losartan/Hydrochlorothiazide [Losartan-Hctz 100-25 mg Tab] 1 tab PO DAILY Discharge Medication List Aspirin 81 mg PO DAILY 09/23/15 [History] Atenolol [Tenormin] 50 mg PO HS 09/23/15 [History] Losartan/Hydrochlorothiazide [Losartan-Hctz 100-25 mg Tab] 1 tab PO DAILY [History] amLODIPine [Norvasc] 10 mg PO DAILY 09/13/17 [History] Apixaban [Eliquis] 5 mg PO BID #60 tab 11/18/18 [Rx] Follow up Appointment(s)/Referral(s): John Simeon MD [STAFF PHYSICIAN] - 12/02/18 9:30 am Choco Biggs DO [Primary Care Provider] - 11/28/18 11:00 am (With Penelope BURT ) Patient Instructions/Handouts: A-fib (Atrial Fibrillation) (DC), Safe Use of Anticoagulants (DC) Activity/Diet/Wound Care/Special Instructions: pts monthly copay for Xarelto or Eliquis is $40. Discharge Disposition: HOME SELF-CARE
--- NOTE | 2018-11-19 06:36 | ECHOF ---
Referral Reason:lv function MEASUREMENTS -------- HEIGHT: 182.9 cm WEIGHT: 101.6 kg BP: RVIDd: 4.2 cm (< 3.3) IVSd: 1.3 cm (0.6 - 1.1) LVIDd: 4.2 cm (3.9 - 5.3) LVPWd: 1.3 cm (0.6 - 1.1) IVSs: 2.2 cm LVIDs: 2.0 cm LVPWs: 1.8 cm Ao Diam: 3.5 cm (2.0 - 3.7) AV Cusp: 2.1 cm (1.5 - 2.6) LA Diam: 3.7 cm (2.7 - 3.8) MV E Gurwinder: 0.78 m/s MV DecT: 210 ms MV A Gurwinder: 0.39 m/s MV E/A Ratio: 2.00 RAP: 5.00 mmHg RVSP: 8.46 mmHg FINDINGS -------- Sinus rhythm. This was a technically difficult study with suboptimal views. The left ventricular size is normal. There is mild concentric left ventricular hypertrophy. Overa ll left ventricular systolic function is normal with, an EF between 55 - 60 %. The right ventricle is severely enlarged. The left atrial size is normal. The right atrium is normal in size. Lumason used The aortic valve is trileaflet and appears structurally normal. Mild mitral regurgitation is present. Mild tricuspid regurgitation present. The right ventricular systolic pressure, as measured by Doppl er, is 8.46mmHg. Not well quantified. Pulmonic valve appears structurally normal. The aortic root size is normal. The pericardium is normal. CONCLUSIONS -------- 1. Sinus rhythm. 2. This was a technically difficult study with suboptimal views. 3. The left ventricular size is normal. 4. There is mild concentric left ventricular hypertrophy. 5. Overall left ventricular systolic function is normal with, an EF between 55 - 60 %. 6. The right ventricle is severely enlarged. 7. The left atrial size is normal. 8. The right atrium is normal in size. 9. Lumason used 10. The aortic valve is trileaflet and appears structurally normal. 11. Mild mitral regurgitation is present. 12. Mild tricuspid regurgitation present. 13. The right ventricular systolic pressure, as measured by Doppler, is 8.46mmHg. 14. Pulmonic valve appears structurally normal. 15. The aortic root size is normal. 16. The pericardium is normal. GREEN CHAINER: Susan Christopher RDCS
[2018-11-19] MEDS ORDERED: LOSARTAN-HCTZ 50-12.5 MG 1 EACH TAB PO SCH (09:00)
[2018-11-19] MEDS ORDERED: amLODIPine 10 MG TAB PO SCH (09:00)
== END 2018-11-18 16:28 | disposition home or self-care (01) | DRG 310 ==
LOC: EC 11:29 → 3SCARD 13:36
PROVIDERS: ADMIT Internal Medicine; ATTEND Internal Medicine
DX: I48.0 Paroxysmal atrial fibrillation (principal); I10 Essential (primary) hypertension; I83.90 Asymptomatic varicose veins of unspecified lower extremity; F19.11 Other psychoactive substance abuse, in remission; Z79.82 Long term (current) use of aspirin; Z79.899 Other long term (current) drug therapy; Z87.891 Personal history of nicotine dependence; Z86.718 Personal history of other venous thrombosis and embolism; Z87.01 Personal history of pneumonia (recurrent); Z87.81 Personal history of (healed) traumatic fracture; Z80.3 Family history of malignant neoplasm of breast; Z82.49 Family history of ischemic heart disease and other diseases of the circulatory system; Z83.3 Family history of diabetes mellitus; Z80.41 Family history of malignant neoplasm of ovary; Z80.8 Family history of malignant neoplasm of other organs or systems
CPT/HCPCS: 36415; 71046; 80053; 80061; 81003; 82550; 82553; 83735; 84443; 84484; 85025; 85610; 85730; 87502; 93005; 93306; 96365; 96366; 96376; 99285

== ENCOUNTER 2019-02-16 06:30 | Day surgery (SDC) | payer MEDICARE ==
[2019-02-16] MEDS ORDERED: SODIUM CHLORIDE 0.9% 1,000 ML IV SCH (06:47)
--- NOTE | 2019-02-16 07:54 | P.PCN ---
Preoperative Diagnosis: Diagnosis Atrial tachycardia with RVR, symptomatic History of 2 A. fib ablations of the [facility] almost 15 years back Procedure Procedure was canceled because he converted back to sinus rhythm but yesterday at start flecainide 100 mg twice daily. He has a normal 2-D echo and Doppler study with preserved systolic function and normal stress test . Twelve-lead ECG shows sinus rhythm with a normal [place] interval narrow QRS normal ST segments on flecainide 100 mg twice daily after 2 doses he is also on atenolol Plan Continue ELIQUIS Reduce flecainide to 50 g twice daily Continue atenolol Continue Norvasc and continue losartan and have to thiazide for hypertension management Consider atrial tachycardia ablation with uninterrupted ELIQUIS Patient was. Flecainide 7 days before the procedure He will undergo an EP study to induce atrial tachycardia followed by mapping and frequency ablation if inducible He was seen in the office in about 4 weeks. A Holter monitor will be ordered
== END 2019-02-16 08:18 | disposition home or self-care (01) ==
LOC: CATHCVL 06:30
PROVIDERS: ATTEND Internal Medicine Clinical Cardiac Electrophysiology
DX: I47.1 Supraventricular tachycardia (principal); I10 Essential (primary) hypertension; Z53.8 Procedure and treatment not carried out for other reasons; Z98.890 Other specified postprocedural states; Z79.01 Long term (current) use of anticoagulants; Z79.899 Other long term (current) drug therapy

== ENCOUNTER 2019-04-04 10:50 | Day surgery (SDC) | payer MEDICARE ==
[2019-03-29 14:19] VITALS: BMI 30.7
[2019-04-04] MEDS ORDERED: FUROSEMIDE 10 MG/ML 2 ML VIAL ONE (12:26)
[2019-04-04] MEDS ORDERED: MIDAZOLAM 2 MG/2 ML VIAL ONE (12:26)
[2019-04-04] MEDS ORDERED: NEOSTIGMINE 1 MG/ML 10 ML VIAL ONE (12:26)
[2019-04-04] MEDS ORDERED: SUCCINYLCHOLINE CHLORIDE 100 MG/5 ML SYR IV ONE (12:26)
[2019-04-04] MEDS ORDERED: HYDROmorphone (PF) 1 MG/ML ONE (12:26)
[2019-04-04] MEDS ORDERED: IV FLUID CONTINUATION 600 ML IV ONE (12:26)
[2019-04-04] MEDS ORDERED: PROPOFOL 10 MG/ML 20 ML VIAL IV ONE (12:26)
[2019-04-04] MEDS ORDERED: fentaNYL (PF) 50 MCG/ML 2 ML AMP ONE (12:26)
[2019-04-04] MEDS ORDERED: PHENYLEPHRINE-0.9% NACL SYG 1 MG/10 ML SYRINGE ONE (12:26)
[2019-04-04] MEDS ORDERED: HEPARIN SODIUM,PORCINE 10,000 UNIT/ML 1 ML VIAL ONE (12:26)
[2019-04-04] MEDS ORDERED: ROCURONIUM BROMIDE 10 MG/ML 10 ML VIAL IV ONE (12:26)
[2019-04-04] MEDS ORDERED: HEPARIN SODIUM,PORCINE 5,000 UNIT/ML 1 ML VIAL ONE (12:26)
[2019-04-04] MEDS ORDERED: GLYCOPYRROLATE 0.2 MG/ML 2 ML VIAL ONE (12:26)
[2019-04-04] MEDS ORDERED: PROTAMINE SULFATE 10 MG/ML 5 ML VIAL IV ONE (12:26)
[2019-04-04] MEDS ORDERED: IV FLUID CONTINUATION 900 ML IV ONE (12:26)
[2019-04-04] MEDS ORDERED: LIDOCAINE 1% INJ 10MG/ML (20 ML MDV) ONE (12:40)
[2019-04-04] MEDS ORDERED: HEPARIN SODIUM 1,000 UN/ML (10ML VL) ONE (13:13)
[2019-04-04] MEDS ORDERED: LIDOCAINE 1% INJ 10MG/ML (20 ML MDV) SQ ONE (13:18)
[2019-04-04] MEDS ORDERED: HEPARIN SOD,PORK IN 0.45% NACL 25,000 UNIT in 0.45% NACL 1 250ML.BAG IV ONE (13:19)
[2019-04-04] MEDS ORDERED: IOPAMIDOL-370 50ML BTL INJ ONE (15:06)
[2019-04-04] MEDS ORDERED: HEPARIN SODIUM (1,000 UNIT/ML) 1,000 UNIT in SODIUM CHLORIDE 0.9% 1,000 ML IRRIGATION ONE ×2 (15:07→18:58)
[2019-04-04] MEDS ORDERED: LACTATED RINGERS 1,000 ML IV ONE ×2 (16:31→18:57)
[2019-04-04] MEDS ORDERED: HYDROcodone/APAP 5-325MG 1 EACH TAB PO PRN (19:46)
[2019-04-04] MEDS ORDERED: ACETAMINOPHEN TAB 325 MG TAB PO PRN (19:46)
[2019-04-04] MEDS ORDERED: FUROSEMIDE 10 MG/ML 4 ML VIAL ONE (19:47)
[2019-04-04] MEDS ORDERED: FUROSEMIDE 10 MG/ML 4 ML VIAL IV ONE (19:48)
--- NOTE | 2019-04-04 20:02 | P.PCN ---
Preoperative Diagnosis: Diagnosis Atrial fibrillation, symptomatic, refractory to therapy Result Successful pulmonary vein isolation of all veins using cryo-ablation Complete entrance block in all 4 veins confirmed No evidence for phrenic nerve injury Esophageal deflection YES Electrical cardioversion with a synchronized shock across the chest NO Procedure details Patient was brought to the EP lab in a fasting state. Written informed consent was obtained prior to the procedure. Procedure performed under general anesthesia After initial muscle relaxant use, muscle relaxants were not given thereafter in order to assess phrenic nerve during procedure. Patient prepped and draped as per protocol Full cryo-set up with standard preparation of the cryoablation tools done. Femoral Venous access obtained on the right and left groins Venous and arterial Sheaths placed. Diagnostic catheters for the high right atrium, phrenic nerve stimulation and pacing, His bundle, RV and coronary sinus placed Intracardiac echo catheter placed. Long sheath placed in the right atrium Left and right transseptal catheterization performed under intracardiac echo guidance. Intravenous heparin with aCT above 300 Later, catheter positioning and balloon positioning in the left atrium, under intracardiac echo guidance Diagnostic EP study with Drug infusion, Isuprel Coronary sinus pacing and recording Baseline measurements Sinus cycle length 806 ms, MI interval 176 ms, QRS 110 ms and QT interval 391 ms AH interval 95 ms and HV interval 30 ms Atrial pacing performed from the high right atrium and the coronary sinus RV pacing Sinus recovery times a 600 504 100 ms were 1318, 1366 and 1547 ms. Corresponding to sinus node recovery times were the upper limits of normal Low slow pathway conduction No accessory pathway conduction AV node Wenckebach block 460 ms VA Wenckebach block 500 ms Atrial extra stimulation of reflexes to lie from multiple sites performed Burst stimulation performed on and off Isuprel On Isuprel atrial tachycardia induced This terminated while the left atrium is being mapped but then reinitiated with atrial extra stimulation Transseptal catheterization performed RA pressure 14/5/10 LA pressure 22/5/13 Transseptal catheterization performed with standard sheath. The cryoablation sheath was then placed with an over the wire exchange without any acute complications. All 4 pulmonary veins were isolated in the following sequence: Left superior followed by left inferior followed by right superior followed by right inferior The cryo-ablation balloon was placed at the os of each vein 1.5 mL of IV dye was injected to confirm an occluded vein Goal during cryoablation was to achieve complete occlusion of the pulmonary vein, achieve -30 degrees C at 30 seconds and achieve -40 degrees C at 60 seconds and a time to effect of less than 60-90 seconds, . If not the balloon was repositioned to obtain this result After completion of Cryoblation with durations from 180-240 seconds, entrance block was confirmed with the Attain circular catheter in a roving fashion around the antrum of the pulmonary veins Phrenic nerve pacing was performed from the SVC, right innominate vein area and diaphragm voltage was monitored. Diaphragmatic contractions were also monitored manually for strength of contraction. Parameter goals for each cryo freeze Complete occlusion of the appropriate vein -30 degrees C by 30 seconds -40 degrees C by 60 seconds Minimum between minus 40-55 degrees C Thaw time greater than 10 seconds Balloon visualized by intracardiac echo The esophagus was intubated. Esophageal Temperature monitoring with a CIRCA catheter formed. Esophageal deflection for hypothermia of the esophagus below 30 degrees C Left superior pulmonary vein Complete isolation, entrance block, 3 minutes Left inferior pulmonary vein Complete isolation, entrance block , 3 minutes Right superior pulmonary vein, during phrenic nerve pacing Complete isolation, entrance block, 3 minutes Right inferior pulmonary vein, during phrenic nerve pacing Complete isolation, entrance block, 3 minutes At the end of the procedure the Achieve catheter was once again used to check for entrance block Phrenic nerve stimulation was performed to confirm diaphragmatic stimulation the end of the procedure Cine fluoroscopy was performed at the very end of the procedure to confirm movement of both diaphragms with inspiration and expiration 3-D electro-anatomic mapping was performed after atrial tachycardia was induced with straight pacing on Isuprel Patient had induction of multiple atrial tachycardias which was sequentially ablated The first tachycardia was mapped to the roof of the left atrium. This was a reentrant tachycardia involving the roof and RF ablation of the roof was performed anteriorly. While ablating the, atrial fibrillation was induced but once a line was completed the atrial tachycardia reorganized to a different one 3-D electro-anatomic mapping revealed that this Tachycardia was mitral reentry Linear ablation of the mitral reentry was performed and later bidirectional block was proven with differential pacing However the tachycardia changed once again to the third atrial tachycardia which was mapped to the cavo tricuspid tricuspid isthmus. RF ablation was performed. During RF ablation atrial fibrillation was induced but then again terminated with completion of Bidirectional block was noted with differential pacing The mitral isthmus and tricuspid isthmus tachycardias, reentrant were difficult to plate on account of the thickness of the tissue here It took a long time and along duration RF with high output 35 W to achieve complete block The overall time was over 7 hours At the end of the procedure the patient was extubated Heparin was reversed Venous sheaths were removed and hemostasis assured Procedures performed PVI - CRYO Ablation , linear ablation of roof tachycardia, linear ablation of mitral reentry, linear ablation of atrial flutter Diagnostic EP study with induction for arrhythmias as described above CS pacing and recording Left and right transseptal catheterization Catheter the mapping of the tachycardia, 3D mapping Intracardiac echocardiography Pulmonary vein isolation with transseptal and comprehensive EPS, [id number] Left atrial roof line, +[id number] Linear ablation of the mitral isthmus for mitral reentry, +[id number] Linear ablation of the tricuspid isthmus for typical atrial flutter, +21901 Drug Infusion +[id number] Long procedure greater than 7 hours on account of the thickness of the mitral isthmus and the tricuspid isthmus These to tachycardias to complete the long time for successful ablation on account of the thickness of the tissue
--- NOTE | 2019-04-04 20:05 | P.PRLE ---
RE: Flynn Adame Dear Dr. Dian Pruett underwent pulmonary vein isolation followed by induction multiple tachycardias, each of which was sequentially and successfully ablated He had reentry through the left atrial roof which was successfully ablated Thereafter he had reentry around the mitral annulus which was successfully ablated Thereafter he had typical atrial flutter around the tricuspid annulus which is also successfully ablated I would treat him on flecainide for about 6 weeks and then stopped this completely. He will continue ELIQUIS lifelong Thank you for entrusting me with the care of the patient Warm regards Sincerely Missael Fontana
[2019-04-04] MEDS ORDERED: ACETAMINOPHEN IV (For NPO) 1,000 MG in EMPTY BAG 1 BAG IVPB ONE (20:15)
[2019-04-04] MEDS ORDERED: ATENOLOL 50 MG TAB PO SCH (21:00)
[2019-04-04] MEDS: FLECAINIDE 50 MG TAB PO SCH (21:55)
[2019-04-04] MEDS: APIXABAN 5 MG TAB PO SCH (21:55)
[2019-04-04] MEDS: SODIUM CHLORIDE 0.9% 1,000 ML IV SCH (21:56)
[2019-04-05] MEDS: SODIUM CHLORIDE 0.9% 1,000 ML IV SCH (06:44)
[2019-04-05 08:27] LABS: Anion Gap 7 mmol/L; Blood Urea Nitrogen 18 mg/dL (9-20); Calcium 8.6 mg/dL (8.4-10.2); Carbon Dioxide 28 mmol/L (22-30); Chloride 103 mmol/L (98-107); Glucose 116 mg/dL (74-99); Potassium 3.3 mmol/L (3.5-5.1); Sodium 138 mmol/L (137-145)
[2019-04-05] MEDS ORDERED: LOSARTAN-HCTZ 50-12.5 MG 1 EACH TAB PO SCH (09:00)
[2019-04-05] MEDS ORDERED: FUROSEMIDE 40 MG TAB PO SCH (09:00)
[2019-04-05] MEDS ORDERED: amLODIPine 10 MG TAB PO SCH (09:00)
[2019-04-05] MEDS ORDERED: COLCHICINE 0.6 MG EACH PO SCH (09:45)
[2019-04-05] MEDS: APIXABAN 5 MG TAB PO SCH (10:58)
[2019-04-05] MEDS: FLECAINIDE 50 MG TAB PO SCH (10:58)
[2019-04-05 15:45] VITALS: BP 133/71; PULSE 84; RESP 15; TEMP 98.3
== END 2019-04-05 17:28 | disposition home or self-care (01) ==
LOC: CATHEP 10:50 → 1SOBS 19:32 → CATHEP 04-05 17:28
PROVIDERS: ATTEND Internal Medicine Clinical Cardiac Electrophysiology
DX: I48.91 Unspecified atrial fibrillation (principal); I48.3 Typical atrial flutter; Z87.891 Personal history of nicotine dependence; Z86.718 Personal history of other venous thrombosis and embolism; Z79.01 Long term (current) use of anticoagulants; Z79.899 Other long term (current) drug therapy
CPT/HCPCS: 93623; 93662; 93613; 93655; 93656; 85347; 80048; C1769 ×6; C1894 ×2; C1730 ×2; C1759; C1893; C1733; C1766; C1732; J1940; J2001; J1644 ×2; Q9967

== ENCOUNTER → 2019-08-02 | Outpatient (CLI) | payer MEDICARE ==
--- NOTE | 2019-08-02 15:55 | XR ---
EXAMINATION TYPE: XR abdomen 2V DATE OF EXAM: 08/02/2019 COMPARISON: NONE HISTORY: Lower abdominal pain TECHNIQUE: One view abdominal series FINDINGS: The osseous structures are intact. The bowel gas pattern is nonspecific. Curvature the spine with d iffuse osteopenia and degenerative changes noted. There is suggestion of blunting of left costophreni c angle. Arthropathy of the hips. Retained fecal debris in the colon. IMPRESSION: 1. Nonspecific abdomen. 2. Left basilar consolidation and pleural thickening or small effusion.
== END | disposition home or self-care (01) ==
LOC: RADXRYALE 15:27
PROVIDERS: ATTEND Physician Assistant Medical
DX: R10.30 Lower abdominal pain, unspecified (principal)
CPT/HCPCS: 74019

== ENCOUNTER → 2019-08-15 | Outpatient (CLI) | payer MEDICARE ==
[2019-08-15 15:19] LABS: African American GFR (CKD) >90 (>60 ml/min/1.73 sqM); Blood Urea Nitrogen 21 mg/dL (9-20)
--- NOTE | 2019-08-15 17:00 | CT ---
EXAMINATION TYPE: CT abdomen pelvis w con DATE OF EXAM: 08/15/2019 COMPARISON: Abdomen 08/02/2019 HISTORY: c/o abdominal pain, cramping, bloating, diarrhea. CT DLP: 1551.7 mGycm Automated exposure control for dose reduction was used. TECHNIQUE: Helical acquisition of images from the lung bases through the pelvis have been completed. CONTRAST: Performed with Oral Contrast and with IV Contrast, patient injected with 100 mL of Isovue 300. FINDINGS: LUNG BASES: Minimal basilar scarring or atelectasis present AORTA: No significant abnormality is appreciated. LIVER/GB: Liver shows low attenuation likely due to hepatic steatosis. PANCREAS: No significant abnormality is seen. SPLEEN: No significant abnormality is seen. ADRENALS: No significant abnormality is seen. KIDNEYS: No significant abnormality is seen. REPRODUCTIVE ORGANS: Prostate is enlarged. BOWEL: No significant abnormality is seen. FREE AIR: No Free Air visible. ASCITES: None visible. PELVIC ADENOPATHY: None visualized. RETROPERITONEAL ADENOPATHY: No Retroperitoneal Adenopathy visible. URINARY BLADDER: No significant abnormality is seen. OSSEOUS STRUCTURES: Mild degenerative disc changes, facet arthropathy noted in the lower lumbar spin e. IMPRESSION: CORRELATE FOR HEPATIC STEATOSIS. ADDITIONAL FINDINGS ABOVE.
== END | disposition home or self-care (01) ==
LOC: RADCTMAIN 14:43
PROVIDERS: ATTEND Family Medicine
DX: R10.30 Lower abdominal pain, unspecified (principal); R14.3 Flatulence; N40.0 Benign prostatic hyperplasia without lower urinary tract symptoms; I10 Essential (primary) hypertension; I48.20 Chronic atrial fibrillation, unspecified
CPT/HCPCS: 82565; 84520; 74177; 36415; Q9967

== ENCOUNTER → 2019-08-26 | Outpatient (CLI) | payer MEDICARE ==
[2019-08-26 09:06] LABS: Basophils % (A) 1 %; Eosinophils # (A) 0.2 k/uL (0-0.7); Eosinophils % (A) 4 %; HCT 43.4 % (39.0-53.0); HGB 14.9 gm/dL (13.0-17.5); Lymphocytes # (A) 1.3 k/uL (1.0-4.8); Lymphocytes % (A) 21 %; MCH 30.3 pg (25.0-35.0); MCHC 34.4 g/dL (31.0-37.0); MCV 88.1 fL (80.0-100.0); Mean Platelet Volume 5.6; Monocytes # (A) 0.5 k/uL (0-1.0); Monocytes % (A) 8 %; Neutrophils % (A) 64 %; Platelet Count 243 k/uL (150-450); RBC 4.93 m/uL (4.30-5.90); RDW 12.7 % (11.5-15.5); WBC 6.3 k/uL (3.8-10.6)
[2019-08-26 14:41] LABS: Erythrocyte Sedimentation Rate 2 mm/hr (0-15)
== END | disposition home or self-care (01) ==
LOC: LABWHC1 08:02 → EDSTATUS 08:05
PROVIDERS: ATTEND Nurse Practitioner
DX: R19.7 Diarrhea, unspecified (principal)
CPT/HCPCS: 36415; 85025; 85652; 86140

== ENCOUNTER 2019-10-11 10:41 | Day surgery (SDC) | payer MEDICARE ==
[2019-10-09 16:56] VITALS: BMI 31.5
[~2019-10-11 10:41] MED LIST: LACTATED RINGERS 1,000 ML IV SCH; LIDOCAINE 1% 20 ML VIAL (10MG/ML) FOR IV START INTRADERMA PRN
[2019-10-11 11:10] VITALS: TEMP 97.8
[2019-10-11] MEDS ORDERED: PROPOFOL 10 MG/ML 20 ML VIAL IV ONE (12:17)
--- NOTE | 2019-10-11 12:34 | P.PCN ---
Date of Procedure: 10/11/19 Procedure(s) Performed: BRIEF HISTORY: Patient is a 69-year-old pleasant male scheduled for an elective colonoscopy as a part of evaluation of chronic diarrhea for the last 6 months duration. He has 3 to 4 movements daily which are loose to watery in consistency. Stool studies were negative. He is scheduled for colonoscopy to evaluate further. PROCEDURE PERFORMED: Colonoscopy with random biopsies. PREOPERATIVE DIAGNOSIS: Chronic diarrhea of 6 months duration. IV sedation per Anesthesia. PROCEDURE: After informed consent was obtained, the patient, was brought into the endoscopy unit. IV sedation was administered by Anesthesia under continuous monitoring. Digital rectal examination was normal. Initially the Olympus CF-160 flexible video colonoscope was then inserted in the rectum, gradually advanced into the cecum without any difficulty. Careful examination was performed as the scope was gradually being withdrawn. Ileocecal valve and the appendiceal orifice were visualized and appeared normal. Prep was excellent. Mucosa of the cecum, ascending colon, transverse colon, descending colon, sigmoid colon, and rectum appeared normal. Random biopsies were done from ascending and descending colon to rule out microscopic/collagenous colitis Retroflexion was performed in the rectum and no lesions were seen. The patient tolerated the procedure well. IMPRESSION: Normal-appearing colon from rectum to cecum with no evidence of colitis or colorectal neoplasia. RECOMMENDATIONS: Findings of this examination were discussed with the patient well as his family. He was advised to follow with the biopsy results. In the meantime he was advised to use [id number] Imodium as needed and he'll be seen in office in 2 weeks.
[2019-10-11 12:44] VITALS: RESP 16
[2019-10-11 13:01] VITALS: BP 121/57; PULSE 66
== END 2019-10-11 13:27 | disposition home or self-care (01) ==
LOC: ORWHC2ENDO 10:41
PROVIDERS: ATTEND Internal Medicine Gastroenterology
DX: K52.9 Noninfective gastroenteritis and colitis, unspecified (principal); I10 Essential (primary) hypertension; I48.91 Unspecified atrial fibrillation; Z79.899 Other long term (current) drug therapy; Z98.890 Other specified postprocedural states; Z90.89 Acquired absence of other organs
CPT/HCPCS: 88305; 45380; J2704

== ENCOUNTER → 2020-01-24 | Outpatient (CLI) | payer MEDICARE ==
--- NOTE | 2020-01-24 09:43 | XR ---
EXAMINATION TYPE: XR chest 2V DATE OF EXAM: 01/24/2020 COMPARISON: 11/17/2018 HISTORY: Cough for one month TECHNIQUE: Frontal and lateral views of the chest are obtained. FINDINGS: There is no focal air space opacity, pleural effusion, or pneumothorax seen. The cardiac silhouette size is within normal limits. The osseous structures are intact. Bridging anterior osteo phytes are seen of the thoracic spine. This suggests diffuse idiopathic skeletal hyperostosis. IMPRESSION: No acute cardiopulmonary process.
== END | disposition home or self-care (01) ==
LOC: RADXRYALE 09:20
PROVIDERS: ATTEND Physician Assistant Medical
DX: R05 Cough (principal)
CPT/HCPCS: 71046

== ENCOUNTER 2020-03-23 06:23 | Emergency (ER) | payer MEDICARE ==
[2020-03-23 06:31] VITALS: TEMP 97.4
[2020-03-23] MEDS ORDERED: SODIUM CHLORIDE 0.9% 500 ML 500 ML IV STA (06:44)
[2020-03-23 07:06] VITALS: RESP 18
[2020-03-23 07:13] LABS: Basophils # (A) 0.1 k/uL (0-0.2); Basophils % (A) 1 %; Eosinophils # (A) 0.6 k/uL (0-0.7); Eosinophils % (A) 8 %; HGB 15.1 gm/dL (13.0-17.5); Lymphocytes % (A) 14 %; MCH 29.7 pg (25.0-35.0); MCHC 33.5 g/dL (31.0-37.0); MCV 88.5 fL (80.0-100.0); Mean Platelet Volume 6.6; Monocytes # (A) 0.5 k/uL (0-1.0); Monocytes % (A) 7 %; Neutrophils # (A) 5.3 k/uL (1.3-7.7); Neutrophils % (A) 69 %; Platelet Count 245 k/uL (150-450); RBC 5.08 m/uL (4.30-5.90); RDW 12.7 % (11.5-15.5); WBC 7.7 k/uL (3.8-10.6)
--- NOTE | 2020-03-23 07:18 | ED ---
SOB HPI - General Chief Complaint: Shortness of Breath Stated Complaint: cough Time Seen by Provider: 03/23/20 06:33 Source: patient, RN notes reviewed Mode of arrival: ambulatory Limitations: no limitations - History of Present Illness Initial Comments: This a 69-year-old male presents emergency Department with chief complaint of cough and shortness breath. Patient states it has been going on since January. His been evaluated by his PCP she's had several x-rays, labwork including COVID testing which was negative. Patient states that he has not been referred to Dr. Crabtree and his appointment on . Patient states that symptoms greatly worse when he lays down denies any reflux symptoms. He does admit that he was f ormer smoker many years ago. Patient states she's never been diagnosed with COPD or asthma. Patient was given an inhaler which does not know what it was called by his PCP. He was also placed on Singulair Claritin and Mucinex. Patient states that it started making it hurt active so he discontinued singular. He does have a history of A. fib in which he's had ablation. Patient has a chest pain. Patient denies any fevers chills. - Related Data Home Medications Medication Instructions Recorded Confirmed Atenolol [Tenormin] 50 mg PO HS 09/23/15 10/09/19 amLODIPine [Norvasc] 10 mg PO DAILY 09/13/17 10/09/19 Potassium 99 mg PO DAILY 03/29/19 10/09/19 Hydrochlorothiazide 25 mg PO DAILY 10/09/19 10/09/19 Losartan Potassium 100 mg PO DAILY 10/09/19 10/09/19 Previous Rx's Medication Instructions Recorded Flecainide [Tambocor] 50 mg PO Q12HR #90 tablet 02/16/19 Benzonatate [Tessalon Perles] 200 mg PO TID #15 capsule 03/23/20 Famotidine [Pepcid] 20 mg PO BID #28 tablet 03/23/20 Promethaz-Cod 6.25-10 mg/5 ml 5 ml PO Q4HR PRN 3 Days #90 ml 03/23/20 [Phenergan with Codeine] Allergies Allergy/AdvReac Type Severity Reaction Status Date / Time No Known Allergies Allergy Verified 03/23/20 06:31 Review of Systems ROS Statement: Those systems with pertinent positive or pertinent negative responses have been documented in the HPI. ROS Other: All systems not noted in ROS Statement are negative. Past Medical History Past Medical History: Atrial Fibrillation, Deep Vein Thrombosis (DVT), Hypertension, Pneumonia, Skin Disorder Additional Past Medical History / Comment(s): past falls(rib fx), varicose veins, diarrhea, winter itchy skin, History of Any Multi-Drug Resistant Organisms: None Reported Past Surgical History: Cardiac Ablation, Tonsillectomy Additional Past Surgical History / Comment(s): colonoscopy, cardiac ABLATION X2, 1970's sx on testical r/t epididymitis, "procedure for ruptured varicose vein". Past Anesthesia/Blood Transfusion Reactions: Previous Problems w/ Anesthesia, Motion Sickness Additional Past Anesthesia/Blood Transfusion Reaction / Comment(s): "WENT INTO AFIB AFTER COLONOSCOPY" Past Psychological History: No Psychological Hx Reported Smoking Status: Former smoker Past Alcohol Use History: None Reported Past Drug Use History: None Reported - Past Family History Sister(s) Family Medical History: Cancer Additional Family Medical History / Comment(s): BREAST CANCER Father Family Medical History: Coronary Artery Disease (CAD), Diabetes Mellitus Mother Family Medical History: Cancer Additional Family Medical History / Comment(s): SKIN/OVARIAN General Exam Limitations: no limitations General appearance: alert, in no apparent distress Head exam: Present: atraumatic, normocephalic, normal inspection Eye exam: Present: normal appearance, PERRL, EOMI. Absent: scleral icterus, conjunctival injection, periorbital swelling ENT exam: Present: normal exam, normal oropharynx, mucous membranes moist, TM's normal bilaterally Neck exam: Present: normal inspection, full ROM. Absent: tenderness, meningismus, lymphadenopathy Respiratory exam: Present: normal lung sounds bilaterally. Absent: respiratory distress, wheezes, rales, rhonchi, stridor Cardiovascular Exam: Present: regular rate, normal rhythm, normal heart sounds. Absent: systolic murmur, diastolic murmur, rubs, gallop, clicks GI/Abdominal exam: Present: soft, normal bowel sounds. Absent: distended, ten derness, guarding, rebound, rigid Back exam: Absent: CVA tenderness (R), CVA tenderness (L) Neurological exam: Present: alert, oriented X3 Skin exam: Present: warm, dry, intact, normal color. Absent: rash Course Vital Signs 05/16/20 05/16/20 05/16/20 06:26 06:35 07:00 Temperature 97.4 F L Pulse Rate 87 78 Respiratory 18 16 18 Rate Blood Pressure 152/74 139/78 O2 Sat by Pulse 98 97 Oximetry Medical Decision Making - Medical Decision Making Labs, CT were reviewed there are no significant findings. Patient does have an appointment with Dr. Crabtree. Patient will be provided cough suppressant at this time as he states the cough is unbearable. Patient vitals are stable. Patient also started on Pepcid for concerns of GERD possibly causing his cough. Patient will be a emergency admonition return parameters were discussed. - Lab Data Result diagrams: 03/23/20 06:49 03/23/20 06:49 Lab Results 03/23/20 03/23/20 03/23/20 Range/Units 06:49 06:49 06:49 WBC 7.7 (3.8-10.6) k/uL RBC 5.08 (4.30-5.90) m/uL Hgb 15.1 (13.0-17.5) gm/dL Hct 45.0 (39.0-53.0) % MCV 88.5 (80.0-100.0) fL MCH 29.7 (25.0-35.0) pg MCHC 33.5 (31.0-37.0) g/dL RDW 12.7 (11.5-15.5) % Plt Count 245 (150-450) k/uL Neutrophils % 69 % Lymphocytes % 14 % Monocytes % 7 % Eosinophils % 8 % Basophils % 1 % Neutrophils # 5.3 (1.3-7.7) k/uL Lymphocytes # 1.0 (1.0-4.8) k/uL Monocytes # 0.5 (0-1.0) k/uL Eosinophils # 0.6 (0-0.7) k/uL Basophils # 0.1 (0-0.2) k/uL PT 10.3 (9.0-12.0) sec INR 1.0 (<1.2) APTT 24.7 (22.0-30.0) sec Sodium 140 (137-145) mmol/L Potassium 3.2 L (3.5-5.1) mmol/L Chloride 102 (98-107) mmol/L Carbon Dioxide 26 (22-30) mmol/L Anion Gap 12 mmol/L BUN 21 H (9-20) mg/dL Creatinine 0.98 (0.66-1.25) mg/dL Est GFR (CKD-EPI)AfAm >90 (>60 ml/min/1.73 sqM) Est GFR (CKD-EPI)NonAf 80 (>60 ml/min/1.73 sqM) Glucose 126 H (74-99) mg/dL Calcium 9.4 (8.4-10.2) mg/dL Magnesium 1.9 (1.6-2.3) mg/dL Total Bilirubin 0.7 (0.2-1.3) mg/dL AST 24 (17-59) U/L ALT 20 (4-49) U/L Alkaline Phosphatase 67 (38-126) U/L Troponin I (0.000-0.034) ng/mL NT-Pro-B Natriuret Pep pg/mL Total Protein 7.3 (6.3-8.2) g/dL Albumin 4.4 (3.5-5.0) g/dL 03/23/20 03/23/20 Range/Units 06:49 06:49 WBC (3.8-10.6) k/uL RBC (4.30-5.90) m/uL Hgb (13.0-17.5) gm/dL Hct (39.0-53.0) % MCV (80.0-100.0) fL MCH (25.0-35.0) pg MCHC (31.0-37.0) g/dL RDW (11.5-15.5) % Plt Count (150-450) k/uL Neutrophils % % Lymphocytes % % Monocytes % % Eosinophils % % Basophils % % Neutrophils # (1.3-7.7) k/uL Lymphocytes # (1.0-4.8) k/uL Monocytes # (0-1.0) k/uL Eosinophils # (0-0.7) k/uL Basophils # (0-0.2) k/uL PT (9.0-12.0) sec INR (<1.2) APTT (22.0-30.0) sec Sodium (137-145) mmol/L Potassium (3.5-5.1) mmol/L Chloride (98-107) mmol/L Carbon Dioxide (22-30) mmol/L Anion Gap mmol/L BUN (9-20) mg/dL Creatinine (0.66-1.25) mg/dL Est GFR (CKD-EPI)AfAm (>60 ml/min/1.73 sqM) Est GFR (CKD-EPI)NonAf (>60 ml/min/1.73 sqM) Glucose (74-99) mg/dL Calcium (8.4-10.2) mg/dL Magnesium (1.6-2.3) mg/dL Total Bilirubin (0.2-1.3) mg/dL AST (17-59) U/L ALT (4-49) U/L Alkaline Phosphatase (38-126) U/L Troponin I <0.012 (0.000-0.034) ng/mL NT-Pro-B Natriuret Pep 173 pg/mL Total Protein (6.3-8.2) g/dL Albumin (3.5-5.0) g/dL - EKG Data -: EKG Interpreted by Me EKG Comments: EKG performed at 6:59 no sinus rhythm rate of 76 [place] 192 QRS 100 / QTC 390/345 Disposition Clinical Impression: Cough Disposition: HOME SELF-CARE Condition: Stable Instructions (If sedation given, give patient instructions): Chronic Cough (ED) Additional Instructions: Please return to the Emergency Department if symptoms worsen or any other concerns. Prescriptions: Famotidine [Pepcid] 20 mg PO BID #28 tablet Promethaz-Cod 6.25-10 mg/5 ml [Phenergan with Codeine] 5 ml PO Q4HR PRN 3 Days #90 ml PRN Reason: cough Benzonatate [Tessalon Perles] 200 mg PO TID #15 capsule Is patient prescribed a controlled substance at d/c from ED?: Yes When asked, does pt state using other controlled substances?: No If prescribed controlled substance>3 days was MAPS reviewed?: Prescribed <3 Days Referrals: Choco Biggs DO [Primary Care Provider] - 1-2 days Teodoro Crabtree DO [Doctor of Osteopathic Medicine] - 1-2 days Time of Disposition: 08:32
[2020-03-23 07:22] LABS: ALT 20 U/L (4-49); AST 24 U/L (17-59); African American GFR (CKD) >90 (>60 ml/min/1.73 sqM); Albumin 4.4 g/dL (3.5-5.0); Alkaline Phosphatase 67 U/L (38-126); Anion Gap 12 mmol/L; Blood Urea Nitrogen 21 mg/dL (9-20); Calcium 9.4 mg/dL (8.4-10.2); Carbon Dioxide 26 mmol/L (22-30); Chloride 102 mmol/L (98-107); Glucose 126 mg/dL (74-99); Magnesium 1.9 mg/dL (1.6-2.3); Non-African American GFR(CKD) 80 (>60 ml/min/1.73 sqM); Potassium 3.2 mmol/L (3.5-5.1); Sodium 140 mmol/L (137-145); Total Bilirubin 0.7 mg/dL (0.2-1.3); Total Protein 7.3 g/dL (6.3-8.2)
[2020-03-23 07:29] LABS: Partial Thromboplastin Time 24.7 sec (22.0-30.0); Prothrombin Time 10.3 sec (9.0-12.0)
--- NOTE | 2020-03-23 08:15 | CT ---
EXAMINATION TYPE: CT chest angio for PE DATE OF EXAM: 03/23/2020 COMPARISON: Previous study dated 01/12/2011. HISTORY: Cough, persistent dyspnea CT DLP: 477.50 mGycm Automated exposure control for dose reduction was used. CONTRAST: CT Chest for pulmonary embolism performed with without and with IV Contrast, patient injected with 10 0 ml mL of Isovue 370. FINDINGS: There are atelectatic changes at the lung bases as well as the left lingula. Lungs otherwis e clear. There is no significant axillary adenopathy. There is some shotty mediastinal and bilateral hilar mike nopathy. There is no evidence of pulmonary embolus. The aorta is normal in caliber without evidence of dissection. There is no pleural or pericardial. The heart is upper limits of normal in size. There is mild patulence of the lower esophagus. Visualized portions of the upper abdomen are unremarkable. There is hypertrophic spondylosis within the dorsal spine. IMPRESSION: THIS EXAMINATION IS NEGATIVE FOR PULMONARY EMBOLUS.
[2020-03-23 08:35] VITALS: BP 152/79; PULSE 77
== END 2020-03-23 08:49 | disposition home or self-care (01) ==
LOC: EC 06:23
DX: R05 Cough (principal); R06.02 Shortness of breath; R07.9 Chest pain, unspecified; I10 Essential (primary) hypertension; I48.91 Unspecified atrial fibrillation; Z79.899 Other long term (current) drug therapy; Z87.891 Personal history of nicotine dependence; Z86.718 Personal history of other venous thrombosis and embolism; Z98.890 Other specified postprocedural states
CPT/HCPCS: 99285; 96360; 36415; 93005; 83880; 80053; 83735; 84484; 85025; 85610; 85730; 71275; Q9967

== ENCOUNTER 2021-02-19 12:44 | Inpatient (IN) | payer MEDICARE ==
--- NOTE | 2021-02-19 13:58 | ED ---
General Adult HPI - General Chief complaint: Arrhythmia/Palpitations Stated complaint: High HR, hasn't eaten in 3 days Time Seen by Provider: 02/19/21 13:10 Source: patient, RN notes reviewed, old records reviewed Mode of arrival: wheelchair Limitations: no limitations - History of Present Illness Initial comments: This is a 70-year-old male who presents emergency Department complaining of rapid heartbeat. Patient states his been ongoing for 3 weeks. Patient states she's becoming more more short of breath he doesn't feel like eating and he is feeling extremely weak. Patient thinks that he is unable to go home because he does not think he'll be able to survive. Patient also complains of intermittent chest pain over the last few days. Patient states centralized is not always there but it is there currently. Patient denies any recent fever chills or cough. Patient states he had a negative COVID test recently. Patient denies abdominal pain patient denies nausea vomiting diarrhea. - Related Data Home Medications Medication Instructions Recorded Confirmed atenoloL [Tenormin] 50 mg PO HS 09/23/15 02/19/21 amLODIPine [Norvasc] 10 mg PO DAILY 09/13/17 02/19/21 Losartan Potassium 100 mg PO DAILY 10/09/19 02/19/21 hydroCHLOROthiazide 25 mg PO DAILY 10/09/19 02/19/21 Flecainide [Tambocor] 50 mg PO Q12H 02/19/21 02/19/21 Fluticasone Nasal [place] [Flonase 2 spr EA NOSTRIL BID PRN 02/19/21 02/19/21 Nasal [place]] Mometasone Furoate [Asmanex Hfa] 1 puff INHALATION RT-BID 02/19/21 02/19/21 Rivaroxaban [Xarelto] 20 mg PO HS 02/19/21 02/19/21 Allergies Allergy/AdvReac Type Severity Reaction Status Date / Time No Known Allergies Allergy Verified 02/19/21 15:02 Review of Systems ROS Statement: Those systems with pertinent positive or pertinent negative responses have been documented in the HPI. ROS Other: All systems not noted in ROS Statement are negative. Past Medical History Past Medical History: Atrial Fibrillation, Deep Vein Thrombosis (DVT), Hypertension, Pneumonia, Skin Disorder Additional Past Medical History / Comment(s): past falls(rib fx), varicose veins, diarrhea, winter itchy skin, History of Any Multi-Drug Resistant Organisms: None Reported Past Surgical History: Cardiac Ablation, Tonsillectomy Additional Past Surgical History / Comment(s): colonoscopy, cardiac ABLATION X2, 1970's sx on testical r/t epididymitis, "procedure for ruptured varicose vein". Past Anesthesia/Blood Transfusion Reactions: Previous Problems w/ Anesthesia, Motion Sickness Additional Past Anesthesia/Blood Transfusion Reaction / Comment(s): "WENT INTO AFIB AFTER COLONOSCOPY" Past Psychological History: No Psychological Hx Reported Smoking Status: Never smoker Past Alcohol Use History: None Reported Past Drug Use History: None Reported - Past Family History Sister(s) Family Medical History: Cancer Additional Family Medical History / Comment(s): BREAST CANCER Father Family Medical History: Coronary Artery Disease (CAD), Diabetes Mellitus Mother Family Medical History: Cancer Additional Family Medical History / Comment(s): SKIN/OVARIAN General Exam - General Exam Comments Initial Comments: GENERAL: Patient is well-developed and well-nourished. Patient is nontoxic and well- hydrated and is in mild distress. ENT: Neck is soft and supple. No significant lymphadenopathy is noted. Oropharynx is clear. Moist mucous membranes. Neck has full range of motion without eliciting any pain. EYES: The sclera were anicteric and conjunctiva were pink and moist. Extraocular movements were intact and pupils were equal round and reactive to light. E yelids were unremarkable. PULMONARY: Unlabored respirations. Good breath sounds bilaterally. No audible rales rhonchi or wheezing was noted. CARDIOVASCULAR: Patient's heart rate is about 100 beats a minute ABDOMEN: Soft and nontender with normal bowel sounds. SKIN: Skin is clear with no lesions or rashes and otherwise unremarkable. NEUROLOGIC: Patient is alert and oriented x3. Cranial nerves II through XII are grossly intact. Motor and sensory are also intact. Normal speech, volume and content. Symmetrical smile. MUSCULOSKELETAL: Normal extremities with adequate strength and full range of motion. No lower extremity swelling or edema. No calf tenderness. LYMPHATICS: No significant lymphadenopathy is noted PSYCHIATRIC: Normal psychiatric evaluation. Limitations: no limitations Course Vital Signs 02/19/21 13:08 Temperature 97.8 F Pulse Rate 133 H Respiratory 22 Rate Blood Pressure 108/74 O2 Sat by Pulse 97 Oximetry Medical Decision Making - Medical Decision Making EKG shows a regular undetermined rhythm there are no P waves. The rates 111 bpm QRS is 96 QT interval 370 QTC is 503. Patient's EKG shows no ST segment elev ation or depression. Chest x-ray shows COVID pneumonia. Patient's positive COVID Patient states the chest pain is better at this point time. I spoke with the [facility] hospitalist and they agreed to admit the patient admitted the patient I consulted cardiology for the chest pain pulmonary for the COVID - Lab Data Result diagrams: 02/19/21 14:12 02/19/21 14:12 Lab Results 02/19/21 02/19/21 02/19/21 Range/Units 14:12 14:12 14:12 WBC 4.6 (3.8-10.6) k/uL RBC 5.16 (4.30-5.90) m/uL Hgb 15.5 (13.0-17.5) gm/dL Hct 43.6 (39.0-53.0) % MCV 84.5 (80.0-100.0) fL MCH 30.1 (25.0-35.0) pg MCHC 35.6 (31.0-37.0) g/dL RDW 12.4 (11.5-15.5) % Plt Count 173 (150-450) k/uL MPV 6.7 Neutrophils % 75 % Lymphocytes % 12 % Monocytes % 9 % Eosinophils % 1 % Basophils % 1 % Neutrophils # 3.5 (1.3-7.7) k/uL Lymphocytes # 0.6 L (1.0-4.8) k/uL Monocytes # 0.4 (0-1.0) k/uL Eosinophils # 0.0 (0-0.7) k/uL Basophils # 0.1 (0-0.2) k/uL PT 11.2 (9.0-12.0) sec INR 1.1 (<1.2) APTT 27.6 (22.0-30.0) sec Sodium 136 L (137-145) mmol/L Potassium 2.9 L (3.5-5.1) mmol/L Chloride 99 (98-107) mmol/L Carbon Dioxide 25 (22-30) mmol/L Anion Gap 12 mmol/L BUN 27 H (9-20) mg/dL Creatinine 1.25 (0.66-1.25) mg/dL Est GFR (CKD-EPI)AfAm 68 (>60 ml/min/1.73 sqM) Est GFR (CKD-EPI)NonAf 59 (>60 ml/min/1.73 sqM) Glucose 96 (74-99) mg/dL Calcium 9.1 (8.4-10.2) mg/dL Magnesium 2.1 (1.6-2.3) mg/dL Total Bilirubin 0.8 (0.2-1.3) mg/dL AST 49 (17-59) U/L ALT 45 (4-49) U/L Alkaline Phosphatase 68 (38-126) U/L Troponin I (0.000-0.034) ng/mL Total Protein 6.8 (6.3-8.2) g/dL Albumin 4.2 (3.5-5.0) g/dL Coronavirus (PCR) (Not Detectd) 02/19/21 02/19/21 Range/Units 14:12 14:14 WBC (3.8-10.6) k/uL RBC (4.30-5.90) m/uL Hgb (13.0-17.5) gm/dL Hct (39.0-53.0) % MCV (80.0-100.0) fL MCH (25.0-35.0) pg MCHC (31.0-37.0) g/dL RDW (11.5-15.5) % Plt Count (150-450) k/uL MPV Neutrophils % % Lymphocytes % % Monocytes % % Eosinophils % % Basophils % % Neutrophils # (1.3-7.7) k/uL Lymphocytes # (1.0-4.8) k/uL Monocytes # (0-1.0) k/uL Eosinophils # (0-0.7) k/uL Basophils # (0-0.2) k/uL PT (9.0-12.0) sec INR (<1.2) APTT (22.0-30.0) sec Sodium (137-145) mmol/L Potassium (3.5-5.1) mmol/L Chloride (98-107) mmol/L Carbon Dioxide (22-30) mmol/L Anion Gap mmol/L BUN (9-20) mg/dL Creatinine (0.66-1.25) mg/dL Est GFR (CKD-EPI)AfAm (>60 ml/min/1.73 sqM) Est GFR (CKD-EPI)NonAf (>60 ml/min/1.73 sqM) Glucose (74-99) mg/dL Calcium (8.4-10.2) mg/dL Magnesium (1.6-2.3) mg/dL Total Bilirubin (0.2-1.3) mg/dL AST (17-59) U/L ALT (4-49) U/L Alkaline Phosphatase (38-126) U/L Troponin I 0.014 (0.000-0.034) ng/mL Total Protein (6.3-8.2) g/dL Albumin (3.5-5.0) g/dL Coronavirus (PCR) Detected A (Not Detectd) Disposition Clinical Impression: Tachycardia, Chest pain, Pneumonia due to COVID-19 virus Disposition: ADMITTED IP TO THIS HOSP Referrals: None,Stated [REFERRING] - 1-2 days Time of Disposition: 15:54
[2021-02-19 14:21] LABS: Basophils # (A) 0.1 k/uL (0-0.2); Basophils % (A) 1 %; Eosinophils % (A) 1 %; HCT 43.6 % (39.0-53.0); HGB 15.5 gm/dL (13.0-17.5); Lymphocytes # (A) 0.6 k/uL (1.0-4.8); Lymphocytes % (A) 12 %; MCH 30.1 pg (25.0-35.0); MCHC 35.6 g/dL (31.0-37.0); MCV 84.5 fL (80.0-100.0); Mean Platelet Volume 6.7; Monocytes # (A) 0.4 k/uL (0-1.0); Monocytes % (A) 9 %; Neutrophils # (A) 3.5 k/uL (1.3-7.7); Neutrophils % (A) 75 %; Platelet Count 173 k/uL (150-450); RBC 5.16 m/uL (4.30-5.90); RDW 12.4 % (11.5-15.5); WBC 4.6 k/uL (3.8-10.6)
[2021-02-19 14:31] LABS: Albumin 4.2 g/dL (3.5-5.0); Calcium 9.1 mg/dL (8.4-10.2); Magnesium 2.1 mg/dL (1.6-2.3); Potassium 2.9 mmol/L (3.5-5.1); Total Bilirubin 0.8 mg/dL (0.2-1.3); Total Protein 6.8 g/dL (6.3-8.2)
[2021-02-19 14:38] LABS: INR 1.1 (<1.2); Partial Thromboplastin Time 27.6 sec (22.0-30.0); Prothrombin Time 11.2 sec (9.0-12.0)
--- NOTE | 2021-02-19 15:24 | XR ---
EXAMINATION TYPE: XR chest 2V DATE OF EXAM: 02/19/2021 COMPARISON: [facility] x-ray 08/01/2020 HISTORY: Chest pain, tachycardia TECHNIQUE: Frontal and lateral views of the chest are obtained. FINDINGS: There is patchy density within the lungs, no pleural effusion or pneumothorax seen. The c ardiac silhouette size is within normal limits. The osseous structures are intact, anterior flowing osteophytes along the thoracic vertebral bodies with preservation of disc space suggests diffuse idi opathic skeletal hyperostosis. IMPRESSION: Correlate for pneumonia. Follow-up suggested.
[2021-02-19] MEDS ORDERED: NITROGLYCERIN SL TABS 0.4 MG TAB SUBLINGUAL PRN (15:55)
[2021-02-19] MEDS ORDERED: Potassium Replacement Protocol 1 EACH MISC MISCELLANE PRN (17:28)
[2021-02-19] MEDS: NITROGLYCERIN OINT 1 INCH/GM PACKET TOPICAL SCH ×2 (17:48→21:31)
[2021-02-19] MEDS: POTASSIUM CHLORIDE ER 20 MEQ TAB.ER PO SCH ×3 (18:03→20:51)
[2021-02-19] MEDS ORDERED: RIVAROXABAN 20 MG TAB PO SCH (21:00)
[2021-02-19] MEDS ORDERED: atenoloL 50 MG TAB PO SCH (21:00)
[2021-02-19] MEDS ORDERED: FLUTICASONE 50MCG/SPRAY NASAL 16GM EA NOSTRIL PRN (21:03)
[2021-02-19] MEDS: FLECAINIDE 50 MG TAB PO SCH (21:30)
[2021-02-20] MEDS: NITROGLYCERIN OINT 1 INCH/GM PACKET TOPICAL SCH (05:29)
[2021-02-20 07:26] VITALS: BP 116/82; PULSE 112; RESP 16; TEMP 98.3
[2021-02-20] MEDS: FLECAINIDE 50 MG TAB PO SCH (07:27)
[2021-02-20] MEDS ORDERED: FLUTICASONE 220 MCG INHALER INHALATION SCH (08:00)
[2021-02-20 08:13] LABS: Cholesterol 141 mg/dL (<200); HDL Cholesterol 37 mg/dL (40-60); LDL Cholesterol,Calculated 81 mg/dL (0-99); Potassium 3.3 mmol/L (3.5-5.1); Triglycerides 116 mg/dL (<150)
[2021-02-20] MEDS ORDERED: Potassium Replacement Protocol 1 EACH MISC MISCELLANE PRN (08:41)
[2021-02-20] MEDS: POTASSIUM CHLORIDE ER 20 MEQ TAB.ER PO SCH ×2 (08:55→10:15)
[2021-02-20] MEDS ORDERED: LOSARTAN 50 MG TAB PO SCH (09:00)
[2021-02-20] MEDS ORDERED: amLODIPine 10 MG TAB PO SCH (09:00)
[2021-02-20] MEDS ORDERED: ASPIRIN 325 MG TAB PO SCH (09:00)
[2021-02-20] MEDS ORDERED: hydroCHLOROthiazide 25 MG TAB PO SCH (09:00)
[2021-02-20] MEDS ORDERED: atenoloL 25 MG TAB PO STA (09:58)
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
[2021-02-20] MEDS ORDERED: atenoloL 25 MG TAB PO SCH (21:00)
--- NOTE | 2021-02-26 08:56 | ECHOF ---
Referral Reason:chest pain MEASUREMENTS -------- HEIGHT: 172.7 cm WEIGHT: 94.3 kg BP: 116/82 RVIDd: 3.3 cm (< 3.3) IVSd: 1.4 cm (0.6 - 1.1) LVIDd: 3.8 cm (3.9 - 5.3) LVPWd: 1.4 cm (0.6 - 1.1) IVSs: 1.7 cm LVIDs: 2.4 cm LVPWs: 1.7 cm LA Diam: 3.8 cm (2.7 - 3.8) LAESV Index (A-L): 23.55 ml/m Ao Diam: 3.5 cm (2.0 - 3.7) AV Cusp: 2.6 cm (1.5 - 2.6) MV EXCURSION: 14.991 mm (> 18.000) MV EF SLOPE: 40 mm/s (70 - 150) EPSS: 0.4 cm RAP: 5.00 mmHg RVSP: 25.99 mmHg FINDINGS -------- Atrial fibrillation. This was a technically adequate study. The left ventricular size is normal. There is moderate concentric left ventricular hypertrophy. O verall left ventricular systolic function is normal with, an EF between 60 - 65 %. The right ventricle is mildly enlarged. The left atrium is normal in size. The right atrium is normal in size. Interatrial and interventricular septum intact. The aortic valve is trileaflet, and appears structurally normal. No aortic stenosis or regurgitation. There is trace mitral regurgitation. Mild tricuspid regurgitation present. Right ventricular systolic pressure is normal at < 35 mmHg. Trace/mild (physiologic) pulmonic regurgitation. The aortic root size is normal. Normal inferior vena cava with normal inspiratory collapse consistent with estimated right atrial pre ssure of 5 mmHg. There is no pericardial effusion. CONCLUSIONS -------- 1. The left ventricular size is normal. 2. There is moderate concentric left ventricular hypertrophy. 3. Overall left ventricular systolic function is normal with, an EF between 60 - 65 %. 4. The right ventricle is mildly enlarged. 5. The aortic valve is trileaflet, and appears structurally normal. No aortic stenosis or regurgitati on. 6. There is trace mitral regurgitation. 7. Mild tricuspid regurgitation present. 8. Trace/mild (physiologic) pulmonic regurgitation. 9. There is no pericardial effusion. IMPLEMENTATION ANALYST: MAC Hilton
--- NOTE | 2021-02-26 12:01 | P.DS ---
Providers Date of admission: 02/19/21 15:55 Attending physician: Juarez Pryor Consults: 02/19/21 15:55 Consult Physician Urgent Consulting Provider: Beatrice Estrada Consult Reason/Comments: covid pneumonia Do you want consulting provider notified?: Yes Consult Physician Urgent Consulting Provider: [facility] Consult Reason/Comments: Chest pain Do you want consulting provider notified?: Yes Primary care physician: [facility] Course: Refer to [facility] from same day. Plan - Discharge Summary New Discharge Prescriptions: New atenoloL [Tenormin] 75 mg PO HS #30 tab Dexamethasone [Decadron] 6 mg PO DAILY #5 tablet Famotidine [Pepcid] 20 mg PO BID #10 tablet Ascorbic Acid [Vitamin C] 500 mg PO BID #30 tablet Zinc Sulfate 220 mg PO DAILY #20 capsule Continue amLODIPine [Norvasc] 10 mg PO DAILY Losartan Potassium 100 mg PO DAILY Fluticasone Nasal [place] [Flonase Nasal [place]] 2 spr EA NOSTRIL BID PRN PRN Reason: Allergy Symptoms Flecainide [Tambocor] 50 mg PO Q12H Mometasone Furoate [Asmanex Hfa] 1 puff INHALATION RT-BID Rivaroxaban [Xarelto] 20 mg PO HS Discontinued atenoloL [Tenormin] 50 mg PO HS hydroCHLOROthiazide 25 mg PO DAILY Discharge Medication List amLODIPine [Norvasc] 10 mg PO DAILY 09/13/17 [History] Losartan Potassium 100 mg PO DAILY 10/09/19 [History] Flecainide [Tambocor] 50 mg PO Q12H 02/19/21 [History] Fluticasone Nasal [place] [Flonase Nasal [place]] 2 spr EA NOSTRIL BID PRN 02/19/21 [History] Mometasone Furoate [Asmanex Hfa] 1 puff INHALATION RT-BID 02/19/21 [History] Rivaroxaban [Xarelto] 20 mg PO HS 02/19/21 [History] Ascorbic Acid [Vitamin C] 500 mg PO BID #30 tablet 02/20/21 [Rx] Dexamethasone [Decadron] 6 mg PO DAILY #5 tablet 02/20/21 [Rx] Famotidine [Pepcid] 20 mg PO BID #10 tablet 02/20/21 [Rx] Zinc Sulfate 220 mg PO DAILY #20 capsule 02/20/21 [Rx] atenoloL [Tenormin] 75 mg PO HS #30 tab 02/20/21 [Rx] Follow up Appointment(s)/Referral(s): Luis Moore MD [REFERRING] - 1 Week Patient Instructions/Handouts: Coronavirus Disease 2019 (COVID-19) Discharge Disposition: HOME SELF-CARE
== END 2021-02-20 12:05 | disposition home or self-care (01) | DRG 177 ==
LOC: EC 12:44 → 3SCARD 15:55 → 6NMEDSUR 17:13
PROVIDERS: ADMIT Hospitalist; ATTEND Hospitalist
DX: U07.1 COVID-19 (principal); J12.82 Pneumonia due to coronavirus disease 2019; I48.19 Other persistent atrial fibrillation; I10 Essential (primary) hypertension; E87.6 Hypokalemia; T50.2X5A Adverse effect of carbonic-anhydrase inhibitors, benzothiadiazides and other diuretics, initial encounter; Z79.01 Long term (current) use of anticoagulants; Z79.899 Other long term (current) drug therapy; Z86.718 Personal history of other venous thrombosis and embolism; Z87.01 Personal history of pneumonia (recurrent); Z90.89 Acquired absence of other organs; Z98.890 Other specified postprocedural states; Z80.3 Family history of malignant neoplasm of breast; Z80.41 Family history of malignant neoplasm of ovary; Z80.8 Family history of malignant neoplasm of other organs or systems; Z83.3 Family history of diabetes mellitus; Z82.49 Family history of ischemic heart disease and other diseases of the circulatory system
CPT/HCPCS: 36415; 71046; 80053; 80061; 83735; 84132; 84484; 85025; 85610; 85730; 87635; 93005; 93306; 94640; 94760; 99285

== ENCOUNTER 2021-03-20 10:01 | Day surgery (SDC) | payer MEDICARE ==
[2021-03-18 08:50] VITALS: BMI 28.3
[~2021-03-20 10:01] MED LIST changes: -LACTATED RINGERS 1,000 ML IV SCH; -LIDOCAINE 1% 20 ML VIAL (10MG/ML) FOR IV START INTRADERMA PRN; +SODIUM CHLORIDE 0.9% 1,000 ML IV SCH
[2021-03-20 10:32] VITALS: TEMP 97.7
[2021-03-20] MEDS ORDERED: PROPOFOL 10 MG/ML 20 ML VIAL IV ONE (13:10)
[2021-03-20] MEDS ORDERED: LIDOCAINE 1% INJ 10MG/ML (20 ML MDV) ONE (13:10)
--- NOTE | 2021-03-20 13:35 | P.EPPROC ---
- EP Procedure Note Electrophysiology Procedure Note: Diagnosis Recurrence of Atrial tachycardia/atrial fibrillation Recovered from Covid recently about a month back Procedure 360 J biphasic shock in the AP configuration Successful conversion to sinus rhythm Plan Continue Xarelto continue antihypertensive therapy Continue flecainide Follow Dr. Fontana in about 4-6 weeks
[2021-03-20 15:18] VITALS: BP 133/82; PULSE 94; RESP 16
== END 2021-03-20 14:32 | disposition home or self-care (01) ==
LOC: CATHEP 10:01
PROVIDERS: ATTEND Internal Medicine Clinical Cardiac Electrophysiology
DX: I48.0 Paroxysmal atrial fibrillation (principal); I47.1 Supraventricular tachycardia; I71.4 Abdominal aortic aneurysm, without rupture; I77.89 Other specified disorders of arteries and arterioles; I10 Essential (primary) hypertension; I08.1 Rheumatic disorders of both mitral and tricuspid valves; Z20.822 Contact with and (suspected) exposure to COVID-19; E78.5 Hyperlipidemia, unspecified; Z82.49 Family history of ischemic heart disease and other diseases of the circulatory system; Z87.891 Personal history of nicotine dependence; Z79.01 Long term (current) use of anticoagulants; Z79.899 Other long term (current) drug therapy; Z88.0 Allergy status to penicillin
CPT/HCPCS: 92960; 84132; 87635; J2001; J2704

== ENCOUNTER 2021-06-10 11:06 | Day surgery (SDC) | payer MEDICARE ==
[2021-06-04 10:25] VITALS: BMI 31.1
[2021-06-10] MEDS ORDERED: SODIUM CHLORIDE 0.9% 500 ML 500 ML IV ONE (11:23)
[2021-06-10 11:53] LABS: Basophils % (A) 1 %; Eosinophils # (A) 0.1 k/uL (0-0.7); Eosinophils % (A) 2 %; HCT 43.7 % (39.0-53.0); HGB 15.3 gm/dL (13.0-17.5); Lymphocytes # (A) 1.2 k/uL (1.0-4.8); Lymphocytes % (A) 21 %; MCV 88.7 fL (80.0-100.0); Mean Platelet Volume 6.4; Monocytes # (A) 0.5 k/uL (0-1.0); Monocytes % (A) 8 %; Neutrophils # (A) 3.7 k/uL (1.3-7.7); Neutrophils % (A) 65 %; Platelet Count 234 k/uL (150-450); RBC 4.92 m/uL (4.30-5.90); RDW 13.3 % (11.5-15.5); WBC 5.7 k/uL (3.8-10.6)
[2021-06-10] MEDS ORDERED: NEOSTIGMINE 1 MG/ML 10 ML VIAL ONE (12:27)
[2021-06-10] MEDS ORDERED: ROCURONIUM 10 MG/ML (5 ML VIAL) IV ONE (12:27)
[2021-06-10] MEDS ORDERED: PROPOFOL 10 MG/ML 20 ML VIAL IV ONE (12:27)
[2021-06-10] MEDS ORDERED: MIDAZOLAM 2 MG/2 ML VIAL ONE (12:27)
[2021-06-10] MEDS ORDERED: fentaNYL (PF) 50 MCG/ML 2 ML AMP ONE (12:27)
[2021-06-10] MEDS ORDERED: LIDOCAINE 1% INJ 10MG/ML (20 ML MDV) ONE ×3 (12:27→13:18)
[2021-06-10] MEDS ORDERED: ePHEDrine SULFATE/0.9% NACL/PF 50 MG/5 ML SYRINGE IV ONE (12:27)
[2021-06-10] MEDS ORDERED: SUCCINYLCHOLINE CHLORIDE 100 MG/5 ML SYR IV ONE (12:27)
[2021-06-10] MEDS ORDERED: ISOPROTERENOL 250 MCG/1.25 ML SYR IV ONE (12:27)
[2021-06-10] MEDS ORDERED: HEPARIN SODIUM,PORCINE 10,000 UNIT/ML 1 ML VIAL ONE (12:27)
[2021-06-10] MEDS ORDERED: PROTAMINE SULFATE 10 MG/ML 5 ML VIAL IV ONE (12:27)
[2021-06-10] MEDS ORDERED: GLYCOPYRROLATE 0.2 MG/ML 2 ML VIAL ONE (12:27)
[2021-06-10 12:34] LABS: African American GFR (CKD) >90 (>60 ml/min/1.73 sqM); Anion Gap 8 mmol/L; Blood Urea Nitrogen 18 mg/dL (9-20); Calcium 9.6 mg/dL (8.4-10.2); Carbon Dioxide 26 mmol/L (22-30); Chloride 104 mmol/L (98-107); Glucose 105 mg/dL (74-99); Non-African American GFR(CKD) >90 (>60 ml/min/1.73 sqM); Potassium 4.1 mmol/L (3.5-5.1); Sodium 138 mmol/L (137-145)
[2021-06-10] MEDS ORDERED: LIDOCAINE 1% INJ 10MG/ML (20 ML MDV) SQ ONE (13:18)
[2021-06-10] MEDS ORDERED: HEPARIN SOD,PORK IN 0.45% NACL 25,000 UNIT in 0.45% NACL 1 250ML.BAG IV ONE (13:20)
[2021-06-10] MEDS ORDERED: HEPARIN SODIUM (1,000 UNIT/ML) 1,000 UNIT in SODIUM CHLORIDE 0.9% 1,000 ML IRRIGATION ONE (13:40)
[2021-06-10] MEDS ORDERED: SODIUM CHLORIDE 0.9% 1,000 ML IV ONE (16:15)
--- NOTE | 2021-06-10 16:49 | P.HPCAR ---
History of Present Illness This is Dr. Fontana dictating an H/P on this patient The patient was interviewed and examined IMPRESSION / ASSESSMENT: Recurrent atrial tachycardia with upright deflections in the inferior leads, status post cardioversion History of pulmonary vein isolation History of left atrial roof line, mitral isthmus line Known CAD PLAN: EP study and atrial tachycardia ablation. 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 No dizziness He also was a shortness of breath associated with this He has palpitations despite atenolol ROS: No fever chills or rigors, no cough, phlegm or expectoration, no nausea, vomiting or diarrhea, no hematuria, dysuria, no musculoskeletal complaints, no strokes or seizures, no skin lesions. EXAMINATION: 135/72 mmHg pulse rate in the 60s Heart sounds S1 and S2 are normal no murmurs or gallops or rub No JVD Abdomen soft Extremities warm no edema REVIEW OF LABS, ECG & MEDICAL DATA White count 5.7 thousand, hemoglobin 15.3, platelet count 234,000 Sodium 138, potassium 4.1, BUN 18 and creatinine 0.79 Physical Exam Vitals: Vital Signs Temp Pulse Pulse Resp BP Pulse Ox 06/10/21 16:29 97.5 F L 64 18 135/72 94 L 06/10/21 11:44 98.2 F 76 16 159/76 97 Intake and Output 06/10/21 06/10/21 06/10/21 06:59 14:59 22:59 Intake Total 1560 100 Balance 1560 100 Intake: IV 1560 100 Other: Weight 101 kg Past Medical History Past Medical History: Atrial Fibrillation, Deep Vein Thrombosis (DVT), Hypertension, Sleep Apnea/CPAP/BIPAP Additional Past Medical History / Comment(s): See Dr Fontana's H&P,Past falls(rib fx), varicose veins, has CPAP, uses sometimes,Covid February 2021 History of Any Multi-Drug Resistant Organisms: None Reported Past Surgical History: Cardiac Ablation, Tonsillectomy Additional Past Surgical History / Comment(s): Colonoscopy, Cardiac Ablation X2, 1969's surgery on testical r/t epididymitis, "procedure for ruptured varicose vein". Past Anesthesia/Blood Transfusion Reactions: Previous Problems w/ Anesthesia Additional Past Anesthesia/Blood Transfusion Reaction / Comment(s): "WENT INTO A-FIB AFTER COLONOSCOPY." Smoking Status: Former smoker - Past Family History Sister(s) Family Medical History: Cancer Additional Family Medical History / Comment(s): BREAST CANCER. Father Family Medical History: Coronary Artery Disease (CAD), Diabetes Mellitus Mother Family Medical History: Cancer Additional Family Medical History / Comment(s): SKIN/OVARIAN CANCER. Physical Examination Vital Signs Temp Pulse Pulse Resp BP Pulse Ox 06/10/21 16:29 97.5 F L 64 18 135/72 94 L 06/10/21 11:44 98.2 F 76 16 159/76 97 Intake and Output 06/10/21 06/10/21 06/10/21 06:59 14:59 22:59 Intake Total 1560 100 Balance 1560 100 Intake: IV 1560 100 Other: Weight 101 kg Results 06/10/21 11:30 06/10/21 11:30 CBC 06/10/21 Range/Units 11:30 WBC 5.7 (3.8-10.6) k/uL RBC 4.92 (4.30-5.90) m/uL Hgb 15.3 (13.0-17.5) gm/dL Hct 43.7 (39.0-53.0) % Plt Count 234 (150-450) k/uL Comprehensive Metabolic Panel 06/10/21 Range/Units 11:30 Sodium 138 (137-145) mmol/L Potassium 4.1 (3.5-5.1) mmol/L Chloride 104 (98-107) mmol/L Carbon Dioxide 26 (22-30) mmol/L BUN 18 (9-20) mg/dL Creatinine 0.79 (0.66-1.25) mg/dL Glucose 105 H (74-99) mg/dL Calcium 9.6 (8.4-10.2) mg/dL Current Medications Generic Name Dose Route Start Last Admin Trade Name Freq PRN Reason Stop Dose Admin Sodium Chloride 1,000 mls @ 20 mls/hr 06/10/21 05:53 Saline 0.9% IV 07/10/21 05:54 .Q24H KORTNEY Intake and Output 06/10/21 06/10/21 06/10/21 06:59 14:59 22:59 Intake Total 1560 100 Balance 1560 100 Intake: IV 1560 100 Other: Weight 101 kg Patient Weight 06/11/21 06:59 Weight 101 kg 06/10/21 11:30 06/10/21 11:30
--- NOTE | 2021-06-10 17:01 | P.EPPROC ---
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 fib ablation Result Small gap In the lateral aspect of the left atrial roof line, successful ablation of the left atrial roof Pulmonary veins that were previously ablated were quiescent RF ablation in the left atrium ridge along the sharp electrograms just outside the left-sided pulmonary venous ostia No tachycardia induced thereafter on high-dose Isuprel and burst stimulation and triple extrastimuli from multiple sites Procedure details Patient was brought to the EP lab in a fasting state. Written informed consent was obtained prior to the procedure. Procedure was performed under general anesthesia IV heparin was used Patient was in sinus rhythm with a systolic study sinus cycle length 980 ms, NV interval 76 ms, QRS 84 ms and QT 404 ms Burst ablation was performed from the coronary sinus. No tachycardias induced Intracardiac echocardiography was performed The left atrial appendage was interrogated No intracardiac mass or thrombus is noted The interatrial septum was interrogated Transseptal catheterization was performed with intracardiac echo guidance Right and left cardiac catheterization was performed with transseptal puncture RA pressure 13/7/10 LA pressure 22/8/14 The Pentaray cath was placed in the left atrium [place] mapping was performed The pulmonary veins up completely he is slated There was a very small In the lateral aspect of the left atrial roof line I had considered the possibility of left atrial roof reentrant tachycardia based on the EKG morphology previously The mitral isthmus line appeared complete RF ablation was applied in the left atrial roof and this In the line was closed. The line was interrogated with 40 mapping as well as with high output pacing The anterior margin of the left-sided veins particularly the left superior vein in the area that reached had electrograms Linear ablation was performed from the lateral aspect of the left atrial roof line down along the left atrium drainage between the left atrial appendage and the left-sided pulmonary veins This line was completed The mitral isthmus line was interrogated with voltage mapping and output pacing High-dose Isuprel was used Burst stimulation was performed from the high right atrium and from multiple sites in the coronary sinus Extrastimulation for multiple sites, up to triple extrastimuli Occasional PACs and atrial couplets and triplets induced No sustained arrhythmias induced All catheters were removed. Hemostasis was assured Patient tolerated the procedure well without any acute complications
--- NOTE | 2021-06-10 17:03 | P.PRLE ---
RE: Flynn Adame Dear Choco Flynn underwent a diagnostic EP study for recurrent atrial tachycardia that seemed like reentry around the left atrial roof Warted mapping of the left atrium revealed a very small In the lateral aspect of the left atrial roof line Successful ablation was performed Thereafter despite high-dose Isuprel atrial stimulation, no tachycardia could be induced Hopefully he remains free of his arrhythmias He will continue xarelto and will follow with you as previously scheduled Thank you for entrusting me with the care of the patient Warm regards Sincerely Missael Fontana
[2021-06-10] MEDS ORDERED: ACETAMINOPHEN IV (For NPO) 1,000 MG in EMPTY BAG 1 BAG IVPB ONE (17:16)
[2021-06-10] MEDS ORDERED: ACETAMINOPHEN TAB 325 MG TAB PO PRN (17:16)
[2021-06-10 19:58] VITALS: RESP 18
[2021-06-10] MEDS: SODIUM CHLORIDE 0.9% 1,000 ML IV SCH (20:02)
[2021-06-10] MEDS: atenoloL 25 MG TAB PO SCH (20:06)
[2021-06-10] MEDS: FLECAINIDE 50 MG TAB PO SCH (20:07)
[2021-06-10 20:27] LABS: Glucose,Whole Blood 104 mg/dL (75-99)
[2021-06-10] MEDS ORDERED: RIVAROXABAN 20 MG TAB PO SCH (21:00)
[2021-06-11 03:06] VITALS: TEMP 98
[2021-06-11] MEDS: FLECAINIDE 50 MG TAB PO SCH (04:56)
[2021-06-11] MEDS: SODIUM CHLORIDE 0.9% 1,000 ML IV SCH (06:09)
[2021-06-11 07:19] LABS: Glucose,Whole Blood 113 mg/dL (75-99)
[2021-06-11 07:37] VITALS: BP 159/79; PULSE 82
--- NOTE | 2021-06-11 08:02 | P.DS ---
Providers Attending physician: Missael Fontana Primary care physician: [facility] Course: Mr. Adame is doing well. He has no chest discomfort no dizziness lightheadedness. 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 Fontana within 1-2 weeks Patient stable for discharge today Plan - Discharge Summary Discharge Rx Participant: No New Discharge Prescriptions: Continue amLODIPine [Norvasc] 10 mg PO DAILY Losartan Potassium 100 mg PO DAILY Fluticasone Nasal Gypsum [Flonase Nasal Gypsum] 2 spr EA NOSTRIL BID PRN PRN Reason: Allergy Symptoms Flecainide [Tambocor] 50 mg PO Q12H Ascorbic Acid [Vitamin C] 500 mg PO BID #30 tablet atenoloL [Tenormin] 25 mg PO BID Cholecalciferol [Vitamin D3 (25 Mcg = 1000 Iu)] 25 mcg PO DAILY Zinc Sulfate 50 mg PO DAILY Rivaroxaban [Xarelto] 20 mg PO HS Discharge Medication List amLODIPine [Norvasc] 10 mg PO DAILY 09/13/17 [History] Losartan Potassium 100 mg PO DAILY 10/09/19 [History] Flecainide [Tambocor] 50 mg PO Q12H 02/19/21 [History] Fluticasone Nasal Gypsum [Flonase Nasal Gypsum] 2 spr EA NOSTRIL BID PRN 02/19/21 [History] Rivaroxaban [Xarelto] 20 mg PO HS 02/19/21 [History] Ascorbic Acid [Vitamin C] 500 mg PO BID #30 tablet 02/20/21 [Rx] Cholecalciferol [Vitamin D3 (25 Mcg = 1000 Iu)] 25 mcg PO DAILY 03/18/21 [History] atenoloL [Tenormin] 25 mg PO BID 03/18/21 [History] Zinc Sulfate 50 mg PO DAILY 06/04/21 [History]
[2021-06-11] MEDS ORDERED: LOSARTAN 50 MG TAB PO SCH (09:00)
[2021-06-11] MEDS ORDERED: amLODIPine 10 MG TAB PO SCH (09:00)
[2021-06-11] MEDS: atenoloL 25 MG TAB PO SCH (09:05)
== END 2021-06-11 12:29 | disposition home or self-care (01) ==
LOC: CATHEP 11:06 → 6NMEDSUR 16:09 → CATHEP 06-11 12:29
PROVIDERS: ATTEND Internal Medicine Clinical Cardiac Electrophysiology
DX: I48.91 Unspecified atrial fibrillation (principal); I47.1 Supraventricular tachycardia; I25.10 Atherosclerotic heart disease of native coronary artery without angina pectoris; I10 Essential (primary) hypertension; E78.5 Hyperlipidemia, unspecified; G47.33 Obstructive sleep apnea (adult) (pediatric); Z79.899 Other long term (current) drug therapy; Z79.01 Long term (current) use of anticoagulants; Z87.891 Personal history of nicotine dependence; Z82.49 Family history of ischemic heart disease and other diseases of the circulatory system; I08.1 Rheumatic disorders of both mitral and tricuspid valves
CPT/HCPCS: 93623; 93662; 93613; 93656; 80048; 85025; J2001; J1644 ×2

== ENCOUNTER → 2023-05-25 | Outpatient (CLI) | payer MEDICARE ==
--- NOTE | 2023-05-26 07:49 | CT ---
EXAMINATION TYPE: CT left knee - [facility] Protocol DATE OF EXAM: 05/25/2023 COMPARISON: None HISTORY: Pain in left knee, pre surgical. CT DLP: [address] of the left lower extremity for [facility] protocol knee arthroplasty planning. FINDINGS: Left hip joint: Within normal limits. No fracture dislocation or bony lesion seen. Left knee joint: There is severe degenerative narrowing medial tibiofemoral joint space with mild to moderate narrowing of the lateral tibiofemoral joint space. Mild narrowing patellofemoral joint space . Small joint effusion noted. No fracture or bony lesion evident. Left ankle joint: Within normal limits. No fracture or dislocation noted. No bony lesions seen. IMPRESSION: SEVERE DEGENERATIVE CHANGE ABOUT THE LEFT KNEE.
== END | disposition home or self-care (01) ==
LOC: RADCTMAIN 14:27
PROVIDERS: ATTEND Orthopaedic Surgery
DX: M17.12 Unilateral primary osteoarthritis, left knee (principal); I48.91 Unspecified atrial fibrillation

== ENCOUNTER → 2023-06-24 | Outpatient (CLI) | payer MEDICARE | END | disposition home or self-care (01) | LOC: LABPRL 13:37 | PROVIDERS: ATTEND Orthopaedic Surgery | DX: Z53.9 Procedure and treatment not carried out, unspecified reason (principal) ==

== ENCOUNTER 2023-07-14 13:09 | Day surgery (SDC) | payer MEDICARE ==
[2023-07-09 12:23] VITALS: BMI 33.0
[~2023-07-14 13:09] MED LIST changes: +HYDROmorphone 0.5 MG/0.5 ML SYRINGE IVP PRN; +LIDOCAINE 1% (10MG/ML) FOR IV START INTRADERMA PRN; +MIDAZOLAM 2 MG/2 ML VIAL IV PRN; +ROPIVACAINE/EPI/CLONIDINE/KET 50 ML SYRINGE MISCELLANE PRN; -SODIUM CHLORIDE 0.9% 1,000 ML IV SCH; +TRANEXAMIC 1,000 MG/100ML-NACL 1,000 MG in SALINE 1 100ML.BAG IV PRN; +TRANEXAMIC 1,000 MG/100ML-NACL 1,000 MG in SALINE 1 100ML.BAG IVPB PRN
[2023-07-14] MEDS: LACTATED RINGERS 1,000 ML IV SCH ×2 (14:01→23:57)
[2023-07-14] MEDS: ACETAMINOPHEN TAB 500 MG TAB PO PRN ×2 (14:01→14:12)
[2023-07-14] MEDS: oxyCODONE ER 10 MG TAB.ER.12H PO PRN ×2 (14:01→14:12)
[2023-07-14] MEDS: DOCUSATE 100 MG CAP PO PRN ×2 (14:01→14:12)
[2023-07-14] MEDS: DEXAMETHASONE SOD PHOSPHATE 10 MG/ML 1 ML VIAL IV PRN ×2 (14:03→14:12)
[2023-07-14] MEDS: FAMOTIDINE 20 MG/2 ML VIAL IVP PRN ×2 (14:04→14:12)
[2023-07-14] MEDS: KETOROLAC 15 MG/ML 1 ML VIAL IVP PRN ×2 (14:05→14:12)
[2023-07-14] MEDS: ONDANSETRON 4 MG/2 ML VIAL IVP PRN ×2 (14:06→14:12)
[2023-07-14] MEDS ORDERED: TRANEXAMIC 1,000 MG/100ML-NACL PREMIX BAG ONE (15:59)
[2023-07-14] MEDS ORDERED: MIDAZOLAM 2 MG/2 ML VIAL ONE (15:59)
[2023-07-14] MEDS ORDERED: ROPIVACAINE 5 MG/ML 30 ML VIAL ONE (15:59)
[2023-07-14] MEDS ORDERED: DEXAMETHASONE SOD PHOSPHATE 4 MG/ML 1 ML VIAL ONE (15:59)
[2023-07-14] MEDS ORDERED: PROPOFOL 10 MG/ML 20 ML VIAL IV ONE (15:59)
[2023-07-14] MEDS ORDERED: ePHEDrine 50 MG/ML 1 ML VIAL ONE (15:59)
[2023-07-14] MEDS ORDERED: fentaNYL (PF) 50 MCG/ML 2 ML AMP ONE (15:59)
[2023-07-14] MEDS ORDERED: SODIUM CHLORIDE 0.9% (PF) 10 ML VIAL ONE (15:59)
--- NOTE | 2023-07-14 16:02 | P.ANPRN ---
Procedure Note - Anesthesia - Nerve Block Performed Left Adductor Canal Single Time Out Performed: Yes (1409) Date of Procedure: 07/14/23 Location of Patient: PreOp Indication: Acute Post-Operative Pain, Dx/Pain Location (Left knee), Requested by Surgeon Specifically requested for management of pain by DrEmma: Gm Isaac Sedation Type: Sedate with meaningful contact maintained Preparation: Sterile Prep Position: Supine Catheter: None Needle Types: Pajunk Needle Gauge: 21 Ultrasound used to visualize needle placement: Yes Ultrasound used to observe medication spread: Yes Injectate: 0.5% Ropivacaine (see comment for volume) (20 mL +10 mL of saline +4 mg of Decadron) Blood Aspirated: No Pain Paresthesia on Injection Noted: No Resistance on Injection: Normal Image Stored and Saved: Yes Events: Uneventful and Well Tolerated Left iPack Single Time Out Performed: Yes Date of Procedure: 07/14/23 Location of Patient: PreOp Indication: Acute Post-Operative Pain, Dx/Pain Location (Left knee), Requested by Surgeon Specifically requested for management of pain by DrEmma: Gm Isaac Sedation Type: Sedate with meaningful contact maintained Position: Right Lateral Catheter: None Needle Types: Pajunk Needle Gauge: 21 Ultrasound used to visualize needle placement: Yes Ultrasound used to observe medication spread: Yes Injectate: 0.5% Ropivacaine (see comment for volume) (20 mL +10 mL of normal saline) Blood Aspirated: No Pain Paresthesia on Injection Noted: No Resistance on Injection: Normal Image Stored and Saved: Yes Events: Uneventful and Well Tolerated
[2023-07-14] MEDS ORDERED: LACTATED RINGERS 1,000 ML IV ONE (17:09)
[2023-07-14] MEDS ORDERED: ONDANSETRON 4 MG/2 ML VIAL IVP PRN (18:26)
[2023-07-14] MEDS ORDERED: NALOXONE 0.4 MG/ML 1 ML VIAL IV PRN (18:26)
[2023-07-14] MEDS ORDERED: hydrOXYzine pamoate 25 MG CAP PO PRN (18:26)
[2023-07-14] MEDS ORDERED: HYDROcodone/APAP 5-325MG 1 EACH TAB PO PRN (18:26)
[2023-07-14] MEDS ORDERED: HYDROmorphone 0.5 MG/0.5 ML SYRINGE IVP PRN ×3 (18:26)
--- NOTE | 2023-07-14 18:27 | P.OP ---
Date of Procedure: 07/14/23 Preoperative Diagnosis: 1. Left knee arthritis 2. Atrial fibrillation on Xarelto 3. COPD 4. BMI 33 Postoperative Diagnosis: Same Procedure(s) Performed: Left total knee arthroplasty Implants: 1. Salena Triathlon CR Femur Size #5 2. [employer]ena Triathlon Rosamond Tibial Base Size #4 3. [employer]ena Triathlon CS poly Size #4, 9mm 4. Beacon Triathlon all poly patella, Size #35 Anesthesia: regional, spinal Surgeon: Gm Isaac Glass Forming Engineer #1: Shahla Monson Estimated Blood Loss (ml): 100 IV fluids (ml): 1,000 Pathology: none sent Condition: stable Disposition: PACU Indications for Procedure: I met with the patient preoperatively in the office setting and discussed treatment of their symptomatic knee arthritis. They failed a long course of nonsurgical treatment and elected to proceed with an elective total knee replacement. I discussed the potential risks and complications at length and gave them ample time to ask questions. Risks discussed included: risks from anesthesia, superficial site surgical infection, acute and/or chronic periprosthetic joint infection, delayed wound healing, drainage, wound necrosis, instability, stiffness, stiffness requiring manipulation and/or revision s urgery, damage to local blood vessels or nerves, aseptic loosening of the implants, extensor mechanism issues including disruption, patellar maltracking, avascular necrosis etc., continued or worsened knee pain, generalized dissatisfaction with surgical outcome, need for revision surgery, an inability to regain preinjury level of function, DVT, PE, other medical complications, and possibly loss of life or limb. The patient voiced their understanding that while these are the most common complications other less common complications are possible. They provided both their verbal and written consent to go forward with surgery. Operative Findings: Severe. full-thickness cartilage loss medial femoral condyle and tibial plateau, partial thickness cartilage loss femoral trochlea lateral femoral condyle and undersurface of the patella Description of Procedure: The patient was identified in preoperative holding and the correct operative extremity was verified and marked with a marker. I reviewed the consent form with the patient at length. All of their questions were answered. The patient was given a block by anesthesia. They were then brought back to the operating room. They were transferred onto the operating room table where a general anesthetic, preoperative antibiotics, and tranexamic acid were administered by anesthesia. A tourniquet was applied to the proximal aspect of the operative extremity. The contralateral extremity was padded under the heel and secured to the operating room table with a nonsterile blue towel and tape. The ipsilateral arm was carefully draped across the patient's chest and secured with a pillow and foam. A post was applied over the lateral aspect of the ipsilateral thigh and a bolster was placed under the ipsilateral foot. I verified that the operative extremity was stable and the knee was flexed to 90. The operative extremity was then placed in a leg stanton, nonsterile drapes were applied, and the extremity was prepped and draped sterilely in the standard sterile fashion. Prior to starting surgery timeout was performed identifying the correct patient, operative extremity, and procedure. The leg was then elevated, exsanguinated with an Esmarch bandage, and the tourniquet was inflated. An anterior midline incision was made sharply with a scalpel. Once I had dissected deep to the superficial fascial layer medial and lateral flaps were elevated. A medial parapatellar arthrotomy was created. Upon opening the knee joint there were diffuse arthritic changes in all 3 compartments. The anterior horn of the medial meniscus were sharply released and a medial release was performed around the posterior medial corner of the knee to facilitate retractor placement. The fat pad was excised with electrocautery. The patella was found to be severely arthritic and a provisional cut was made with a sagittal saw to facilitate mobilization of the extensor mechanism during the procedure. Remnants of the ACL and PCL were then excised from the notch. 4 mm pins were then placed within the incision in the medial distal femur and proximal tibia. Arrays were applied to the pins and I verified they were completely tightened. The knee was then registered with the [employer] robot and manipulations in implant position were made to balance the knee and opitmize implant position. Using the [employer] robotic saw all cuts were made in accordance with our plan. After all bony fragments had been removed the cuts were verified with the planar probe. The tibia was then subluxed forward and sized. The knee was brought into flexion and a lamina switchbox assembler was placed to allow removal of the meniscal remnants both medially and laterally as well as posterior osteophytes. Local anesthetic was then infiltrated around the joint capsule. Trial implants were then placed within the knee. Range of motion and collateral ligament tension was then evaluated. Adjustments in implant size and position were then made accordingly. Once the knee was felt to be appropriately balanced the Shawn pins were removed. The patella was then recut, sized, and punched. A trial patellar button was then placed. With the trial components in place, the patella tracked midline. The femur was then drilled and the trial component removed. The trial tibial component was then appropriately rotated, pinned, and prepared for the keel. All trial components were then removed from the knee. The knee was thoroughly irrigated with pulsatile lavage. Cement was prepared via vacuum mixing in a bowl on the back table. I then hand pressurized cement into the femur and tibia and placed the implants beginning with the tibial base tray and poly liner, femoral component, and finally the patellar button. All extruded cement was removed including from the pin sites. Once the cement had hardened the knee was evaluated one final time with the final polyethylene liner in place. The knee had full extension and flexion and felt stable to varus and valgus stress throughout the arc of motion. The tourniquet was released and with the tourniquet down the patella tracked midline. All bleeders were controlled with electrocautery. The knee was then soaked for 3 minutes with a dilute Betadine soak. The knee was thoroughly irrigated using 3 L of sterile saline and pulsatile lavage. A deep drain was placed. The extensor mechanism was then reapproximated using pop off Vicryl sutures followed by a running barbed suture. The knee was then closed in layers with a 0 strata fix for the deep fascial layer, 2-0 strata fix for the superficial subcutaneous layer and Monocryl and Steri-Strips for the skin. A sterile dressing and drain sponge were applied. I verified that all instrument, sponge, and sharp counts were correct. The patient was then transferred off the operating room table, extubated, and brought to recovery having tolerated the procedure well. Shahla Monson PA-C was required as a skilled occupational therapy assistant due to the complexity of the procedure for patient positioning, draping, retraction, placement of hardware, and closure of wound. PLAN: The patient can weight-bear as tolerated on the operative extremity. DVT prophylaxis with aspirin 81 mg twice a day based on preoperative risk stratification. Follow-up in the office in 2 weeks for wound check and x-rays of the knee including an AP and lateral.
[2023-07-14] MEDS ORDERED: FLUTICASONE 110 MCG INHALER INHALATION PRN (20:12)
--- NOTE | 2023-07-14 20:18 | XR ---
EXAMINATION TYPE: XR knee limited LT DATE OF EXAM: 07/14/2023 7:23 PM CLINICAL INDICATION:Male, 72 years old with history of post op; COMPARISON: None. TECHNIQUE: The Left knee(s) was examined in Frontal, lateral and oblique projections. FINDINGS: Status post total knee arthroplasty changes with hardware in appropriate alignment and in tact. No evidence of fracture. Subcutaneous lucencies and lucencies within the joint consistent with surgical changes. Drainage catheter is in the superior aspects of the joint space. IMPRESSION: Status post total knee arthroplasty changes with hardware intact and appropriate alignment. No fractu res identified.
[2023-07-14] MEDS ORDERED: SENNOSIDES-DOCUSATE SODIUM 1 EACH TAB PO SCH (21:00)
[2023-07-14] MEDS ORDERED: MONTELUKAST 10 MG TAB PO SCH (21:00)
[2023-07-14] MEDS ORDERED: atenoloL 50 MG TAB PO SCH (21:00)
[2023-07-14] MEDS: HYDROcodone/APAP 5-325MG 1 EACH TAB PO PRN (21:25)
--- NOTE | 2023-07-15 02:58 | P.CONS ---
History of Present Illness - Reason for Consult Consult date: 07/14/23 Perioperative medical management - Chief Complaint Left total knee arthroplasty - History of Present Illness 72-year-old male with A. fib hypertension He comes in for scheduled left total knee arthroplasty he tolerated procedure well no observed immediate postoperative complications denies any chest pain trouble breathing nausea vomiting denies any abdominal pain. Denies any fevers or chills. Reports pain is well tolerated and controlled. review of systems Pertinent positives as noted in HPI. All other systems were reviewed and are negative on exam Constitutional: No acute distress, conversant, pleasant Eyes: Anicteric sclerae, moist conjunctiva, Pupils equal round reactive to light ENMT: NC/AT Oropharynx clear, no erythema, or exudates Neck: Supple, no masses, or JVD No carotid bruits No thyromegaly Lungs: Clear to auscultation Clear to percussion Normal respiratory effort, no accessory muscle use Cardiovascular: Heart regular in rate and rhythm, No murmurs, gallops, or rubs No peripheral edema Abdominal: Soft Nontender, no guarding, rebound or rigidity Abdomen moving with respiration Normoactive bowel sounds Extremities: No digital cyanosis No clubbing Pedal pulses intact and symmetrical Radial pulses intact and symmetrical No calf tenderness Psychiatric: Alert and oriented to person, place and time Appropriate affect Neuro Muscles Strength 5/5 in all 4 extremities with limited exam of the left lower extremity second postop status and pain Sensation to light touch grossly present throughout Cranial nerves II-XII grossly intact Lymphatics: no palpable cervical or supraclavicular lymph nodes Past Medical History Past Medical History: Atrial Fibrillation, Deep Vein Thrombosis (DVT), Hypertension, Sleep Apnea/CPAP/BIPAP Additional Past Medical History / Comment(s): , varicose veins, has CPAP, uses sometimes,Covid February 2021 History of Any Multi-Drug Resistant Organisms: None Reported Past Surgical History: Cardiac Ablation, Tonsillectomy Additional Past Surgical History / Comment(s): Colonoscopy, Cardiac Ablation X2, 1970's surgery on testical r/t epididymitis, "procedure for ruptured varicose vein". Past Anesthesia/Blood Transfusion Reactions: Previous Problems w/ Anesthesia Additional Past Anesthesia/Blood Transfusion Reaction / Comm: "WENT INTO A-FIB AFTER COLONOSCOPY." Past Psychological History: No Psychological Hx Reported Smoking Status: Former smoker Past Alcohol Use History: None Reported Additional Past Alcohol Use History / Comment(s): STARTED SMOKING AT AGE 17 AND QUIT AT AGE 25, SMOKED 1 PPD. Past Drug Use History: None Reported - Past Family History Sister(s) Family Medical History: Cancer Additional Family Medical History / Comment(s): BREAST CANCER. Father Family Medical History: Coronary Artery Disease (CAD), Diabetes Mellitus Mother Family Medical History: Cancer Additional Family Medical History / Comment(s): SKIN/OVARIAN CANCER. Medications and Allergies Home Medications Medication Instructions Recorded Confirmed Type Losartan Potassium 100 mg PO DAILY 10/09/19 07/09/23 History Rivaroxaban [Xarelto] 20 mg PO HS 02/19/21 07/09/23 History Ascorbic Acid [Vitamin C] 500 mg PO BID #30 tablet 02/20/21 07/09/23 Rx atenoloL [Tenormin] 25 mg PO QAM 03/18/21 07/09/23 History Zinc Sulfate 50 mg PO DAILY 06/04/21 07/09/23 History Acetaminophen [Tylenol Extra 500 mg PO DIRECTED PRN 07/09/23 07/09/23 History Strength] Mometasone Furoate [Asmanex 50 MCG 1 puff INHALATION DIRECTED PRN 07/09/23 07/09/23 History Hfa] Montelukast [Singulair] 10 mg PO HS 07/09/23 07/09/23 History Omalizumab [Xolair] 150 mg SQ QMONTHLY 07/09/23 07/09/23 History amLODIPine [Norvasc] 5 mg PO DAILY 07/09/23 07/09/23 History atenoloL [Tenormin] 50 mg PO HS 07/09/23 07/09/23 History hydroCHLOROthiazide 25 mg PO DAILY 07/09/23 07/09/23 History Allergies Allergy/AdvReac Type Severity Reaction Status Date / Time No Known Allergies Allergy Verified 07/14/23 13:40 Physical Exam Vitals: Vital Signs Temp Pulse Resp BP Pulse Ox 07/15/23 02:00 97.6 F 70 128/75 96 07/14/23 20:15 78 122/74 91 L 07/14/23 20:00 82 127/75 93 L 07/14/23 19:45 78 131/78 92 L 07/14/23 19:25 97.8 F 80 17 132/76 94 L 07/14/23 18:42 81 16 157/72 97 07/14/23 18:33 79 16 149/69 96 07/14/23 18:18 97 F L 83 18 163/78 94 L 07/14/23 14:19 70 16 154/75 96 07/14/23 13:51 97.5 F L 70 16 160/99 98 Intake and Output 07/14/23 07/14/23 07/15/23 14:59 22:59 06:59 Intake Total 200 1250 Output Total 150 150 Balance 200 1100 -150 Intake: IV 200 1250 Output: Urine 150 Estimated Blood Loss 150 Other: Weight 104.5 kg 104.5 kg Assessment and Plan Assessment: Left total knee arthroplasty postoperative day 0 Postop management per orthopedic team A. fib, rate controlled History of DVT Continue with atenolol Restart Xarelto once cleared by orthopedic team Hypertension controlled Continue with amlodipine, atenolol, hydrochlorothiazide, losartan COPD not on home oxygen Obstructive sleep apnea Continue with inhalers Encouraged to CPAP Stable overall from medical standpoint Check CBC and BMP in the morning Consider restarting Xarelto once cleared by orthopedic team Full code Thank you for this consultation
[2023-07-15] MEDS: HYDROcodone/APAP 5-325MG 1 EACH TAB PO PRN ×2 (03:18→09:19)
[2023-07-15] MEDS: LACTATED RINGERS 1,000 ML IV SCH ×2 (05:32→05:35)
[2023-07-15 08:45] VITALS: RESP 16
[2023-07-15] MEDS ORDERED: LOSARTAN 50 MG TAB PO SCH (09:00)
[2023-07-15] MEDS ORDERED: amLODIPine 5 MG TAB PO SCH (09:00)
[2023-07-15] MEDS ORDERED: atenoloL 25 MG TAB PO SCH (09:00)
[2023-07-15] MEDS ORDERED: hydroCHLOROthiazide 25 MG TAB PO SCH (09:00)
--- NOTE | 2023-07-15 11:16 | P.PN ---
Subjective Progress Note Date: 07/15/23 Subjective: Patient seen and examined at bedside. No acute events overnight. Able to ambulate using a walker. Pertinent positives and negatives as discussed above, a complete review of systems was performed and all other systems are negative. Vitals Signs Reviewed. General: nontoxic, no distress, appears at stated age Derm: warm, dry, knee dressing clean, dry, intact Head: atraumatic, normocephalic, symmetric Eyes: EOMI, no lid lag, anicteric sclera Mouth: no lip lesion, mucus membranes moist Cardiovascular: S1S2 reg, no murmur Lungs: CTA bilateral, no rhonchi, no rales , no accessory muscle use Abdominal: soft, nontender to palpation, no guarding, no appreciable organo megaly Ext: no gross muscle atrophy, no edema, no contractures Neuro: CN II-XI grossly intact, no focal neuro deficits Psych: Alert, oriented, appropriate affect Data Reviewed Today: Pertinent Labs: CBC and BMP pending, will be reviewed when available Imaging: No new imaging Assessment and Plan: Atrial fibrillation, rate controlled History of DVT Hypertension COPD MARIBEL -Restarted xarelto -home meds reviewed -CBC and BMP pending, will be reviewed when available -Pain control per surgical team Patient is otherwise medically optimized for discharge. Thank you for allowing us to participate in the care of this pleasant patient. Do not hesitate to contact us with questions. Someone can be reached from the [facility] [place] hospitalist group all hours of the day at [phone] or via [employer]. Objective - Vital Signs Vital signs: Vital Signs Temp 97.6 F 07/15/23 02:00 Pulse 87 07/15/23 08:00 Resp 16 07/15/23 08:00 BP 156/79 07/15/23 08:00 Pulse Ox 93 L 07/15/23 08:03 FiO2 Intake & Output 07/14/23 07/15/23 07/15/23 18:59 06:59 18:59 Intake Total 1450 1250 Output Total 150 490 Balance 1300 760 Weight 104.5 kg 104.5 kg Intake: IV 1450 Intake, IV Titration 1250 Amount Lactated Ringers 1,000 ml 1200 @ 100 mls/hr IV .Q10H [facility] Rx#:[id number] ceFAZolin 2 gm In Sodium 50 Chloride 0.9% 50 ml @ 100 mls/hr IVPB Q8HR [facility] Rx# :[id number] Output: Drainage 90 Left Lower Knee 90 Urine 400 Estimated Blood Loss 150
[2023-07-15 11:21] LABS: BUN/Creat Ratio 22.44 Ratio (12.00-20.00); Blood Urea Nitrogen 20.2 mg/dL (9.0-27.0); Carbon Dioxide 22.5 mmol/L (21.6-31.8); Chloride 105 mmol/L (96-109); Glucose 162 mg/dL (70-110); Potassium 3.7 mmol/L (3.5-5.5); Sodium 142 mmol/L (135-145)
[2023-07-15 11:29] LABS: Basophils # (A) 0.01 X 10*3/uL (0.00-0.10); Basophils % (A) 0.1 %; Eosinophils # (A) 0 X 10*3/uL (0.04-0.35); Eosinophils % (A) 0 %; HCT 38.4 % (39.6-50.0); Lymphocytes # (A) 0.53 X 10*3/uL (0.90-5.00); Lymphocytes % (A) 3.5 %; MCH 30.4 pg (27.0-32.0); MCHC 33.9 d/dL (32.0-37.0); MCV 89.7 FL (80.0-97.0); Monocytes # (A) 0.75 X 10*3/uL (0.20-1.00); Monocytes % (A) 4.9 %; NRBC Per 100 WBC 0 X 10*3/uL (0.00-0.01); Neutrophils # (A) 13.81 X 10*3/uL (1.80-7.70); Platelet Count 223 X 10*3/uL (140-440); RBC 4.28 X 10*6/uL (4.40-5.60); RDW 12.7 % (11.5-14.5); WBC 15.17 X 10*3/uL (4.50-10.00)
--- NOTE | 2023-07-15 11:56 | P.DS ---
Providers Attending physician: Gm Isaac Consults: 07/14/23 18:26 Consult Physician Routine Consulting Provider: Margaret Castaneda Consult Reason/Comments: medical management Do you want consulting provider notified?: Yes Primary care physician: [facility] Course: This is a 72-year-old male who has been followed in our office by Dr. Isaac for continued complaints of left knee pain due to left knee osteoarthritis. Treatment options were discussed, and patient elected to undergo a left total knee arthroplasty. Patient was seen pre-operatively by Anna Joaquin PA-C, and cardiology and cleared for surgery. Patient underwent a left total knee arthroplasty on 07/14/[address] Isaac. The procedure was performed without complication or sequelae. The patient is doing fairly well postoperatively. Vital signs and labs are stable on postoperative day #1. Patient was examined bedside this morning with Dr. Isaac. Patient states he is overall doing very well and the pain in left knee is well-controlled. He has been ambulating with a walker with minimal assistance. Patient has passed physical therapy this morning to return home. Patient is comfortable being discharged home today. Patient has no new complaints this morning. On examination, the patient is sitting up in bed in no apparent distress. He is alert and orientated 3. On inspection of the left knee, there is a clean, dry, intact surgical dressing in place with no bleeding or drainage through the dressing. Patient has good strength and ROM of the left ankle and toes. Motor and sensory function is intact of the left lower extremity. The dorsalis pedis pulse is easily palpable, the left lower extremity is warm and well perfused with brisk capillary refill. Calf is soft and non-tender to palpation. Hemovac drain removed bedside this morning during examination. Patient is discharged home with home health care today in good condition, pending medical clearance. Patient will follow-up in the office at [facility] in 2 weeks. Please see med rec for accurate list of discharge medication. Plan - Discharge Summary Discharge Rx Participant: Yes New Discharge Prescriptions: New RX: Omeprazole 40 mg PO DAILY 30 Days #30 cap Docusate [Colace] 100 mg PO BID #60 capsule HYDROcodone/APAP 5-325MG [[place] 5-325] 1 - 2 tab PO Q6HR PRN 7 Days #32 tab PRN Reason: Pain Continue RX: Losartan Potassium 100 mg PO DAILY RX: Ascorbic Acid [Vitamin C] 500 mg PO BID #30 tablet RX: atenoloL [Tenormin] 25 mg PO QAM RX: Zinc Sulfate 50 mg PO DAILY RX: atenoloL [Tenormin] 50 mg PO HS RX: hydroCHLOROthiazide 25 mg PO DAILY RX: Rivaroxaban [Xarelto] 20 mg PO HS RX: amLODIPine [Norvasc] 5 mg PO DAILY RX: Montelukast [Singulair] 10 mg PO HS RX: Omalizumab [Xolair] 150 mg SQ QMONTHLY RX: Mometasone Furoate [Asmanex 50 MCG Hfa] 1 puff INHALATION DIRECTED PRN PRN Reason: Shortness Of Breath No Action Acetaminophen [Tylenol Extra Strength] 500 mg PO DIRECTED PRN PRN Reason: Pain Discharge Medication List RX: Losartan Potassium 100 mg PO DAILY 10/09/19 [History] RX: Rivaroxaban [Xarelto] 20 mg PO HS 02/19/21 [History] RX: Ascorbic Acid [Vitamin C] 500 mg PO BID #30 tablet 02/20/21 [Rx] RX: atenoloL [Tenormin] 25 mg PO QAM 03/18/21 [History] RX: Zinc Sulfate 50 mg PO DAILY 06/04/21 [History] Acetaminophen [Tylenol Extra Strength] 500 mg PO DIRECTED PRN 07/09/23 [History] RX: Mometasone Furoate [Asmanex 50 MCG Hfa] 1 puff INHALATION DIRECTED PRN 07/09/23 [History] RX: Montelukast [Singulair] 10 mg PO HS 07/09/23 [History] RX: Omalizumab [Xolair] 150 mg SQ QMONTHLY 07/09/23 [History] RX: amLODIPine [Norvasc] 5 mg PO DAILY 07/09/23 [History] RX: atenoloL [Tenormin] 50 mg PO HS 07/09/23 [History] RX: hydroCHLOROthiazide 25 mg PO DAILY 07/09/23 [History] Docusate [Colace] 100 mg PO BID #60 capsule 07/15/23 [Rx] HYDROcodone/APAP 5-325MG [[place] 5-325] 1 - 2 tab PO Q6HR PRN 7 Days #32 tab 07/15/23 [Rx] RX: Omeprazole 40 mg PO DAILY 30 Days #30 cap 07/15/23 [Rx] Follow up Appointment(s)/Referral(s): [facility] [NON-STAFF] - As Needed (walker) [facility] [NON-STAFF] - As Needed Gm Isaac MD [Medical Doctor] - 2 Weeks Activity/Diet/Wound Care/Special Instructions: Weight bear to tolerance on operative extremity with a walker. Keep operative dressing in place until follow-up appointment in the office. Call the office if dressing becomes saturated or falls off. May shower over dressing. Take pain medication as prescribed. Resume Xarelto for blood clot prevention. Follow-up in the office in two weeks at [facility]. Call the office with any questions or concerns, Discharge Disposition: HOME WITH HOME HEALTH SERVICES
[2023-07-15 12:08] VITALS: BP 134/54; PULSE 76; TEMP 97.8
--- NOTE | 2023-07-15 12:47 | P.CRDCN ---
History of Present Illness Consult date: 07/15/23 History of present illness: HISTORY OF PRESENTING ILLNESS 72-year-old male with past medical history of atrial fibrillation status post ablation, hypertension. He is known to Dr. vega. He was scheduled for an outpatient left knee arthroplasty surgery yesterday. Patient tolerated the procedure well and was admitted to the hospital for postoperative management. On today's evaluation patient denies having any chest pain chest pressure shortness of breath. He denied having any palpitations. He reports that hewasn't to atrial fibrillation with symptoms of palpitations which she has not had in last few months now. He denies any new lightheadedness or dizziness. Home medications hydrocodone is a 25 mg, atenolol 25 mg, losartan 100 mg, amlodipine 5 mg, Xarelto 20 mg REVIEW OF SYSTEMS 14 point review of system is negative except what is mentioned above in HPI. PHYSICAL EXAMINATION Vital signs reviewed. Head: Normocephalic. Eyes: Sclerae nonicteric. Neck: Brisk carotid upstroke, no jugular venous distention. Lungs: Clear to auscultation. Heart: Regular rate and rhythm, S1-S2, no S3, no murmur or rub. Abdomen: Soft nontender, positive bowel sounds no organomegaly. Extremities: No edema, intact distal pulses. ASSESSMENT Status post left knee surgery postop day 1 History of atrial fibrillation status post ablation History of DVT HTN, controlled Plan Continue his home cardiac medications which include HCTZ, losartan, atenolol. Resume Xarelto 20 mg daily No need for cardiac testing including an echocardiogram at this time Obtain a 12-lead ECG Past Medical History Past Medical History: Atrial Fibrillation, Deep Vein Thrombosis (DVT), Hypertension, Sleep Apnea/CPAP/BIPAP Additional Past Medical History / Comment(s): , varicose veins, has CPAP, uses sometimes,Covid February 2021 History of Any Multi-Drug Resistant Organisms: None Reported Past Surgical History: Cardiac Ablation, Tonsillectomy Additional Past Surgical History / Comment(s): Colonoscopy, Cardiac Ablation X2, 1970's surgery on testical r/t epididymitis, "procedure for ruptured varicose vein". Past Anesthesia/Blood Transfusion Reactions: Previous Problems w/ Anesthesia Additional Past Anesthesia/Blood Transfusion Reaction / Comment(s): "WENT INTO A-FIB AFTER COLONOSCOPY." Past Psychological History: No Psychological Hx Reported Smoking Status: Former smoker Past Alcohol Use History: None Reported Additional Past Alcohol Use History / Comment(s): STARTED SMOKING AT AGE 17 AND QUIT AT AGE 25, SMOKED 1 PPD. Past Drug Use History: None Reported - Past Family History Sister(s) Family Medical History: Cancer Additional Family Medical History / Comment(s): BREAST CANCER. Father Family Medical History: Coronary Artery Disease (CAD), Diabetes Mellitus Mother Family Medical History: Cancer Additional Family Medical History / Comment(s): SKIN/OVARIAN CANCER. Medications and Allergies Home Medications Medication Instructions Recorded Confirmed Type Losartan Potassium 100 mg PO DAILY 10/09/19 07/09/23 History Rivaroxaban [Xarelto] 20 mg PO HS 02/19/21 07/09/23 History Ascorbic Acid [Vitamin C] 500 mg PO BID #30 tablet 02/20/21 07/09/23 Rx atenoloL [Tenormin] 25 mg PO QAM 03/18/21 07/09/23 History Zinc Sulfate 50 mg PO DAILY 06/04/21 07/09/23 History Acetaminophen [Tylenol Extra 500 mg PO DIRECTED PRN 07/09/23 07/09/23 History Strength] Mometasone Furoate [Asmanex 50 MCG 1 puff INHALATION DIRECTED PRN 07/09/23 07/09/23 History Hfa] Montelukast [Singulair] 10 mg PO HS 07/09/23 07/09/23 History Omalizumab [Xolair] 150 mg SQ QMONTHLY 07/09/23 07/09/23 History amLODIPine [Norvasc] 5 mg PO DAILY 07/09/23 07/09/23 History atenoloL [Tenormin] 50 mg PO HS 07/09/23 07/09/23 History hydroCHLOROthiazide 25 mg PO DAILY 07/09/23 07/09/23 History Docusate [Colace] 100 mg PO BID #60 capsule 07/15/23 Rx HYDROcodone/APAP 5-325MG [[place] 1 - 2 tab PO Q6HR PRN 7 Days #32 07/15/23 Rx 5-325] tab Omeprazole 40 mg PO DAILY 30 Days #30 cap 07/15/23 Rx Allergies Allergy/AdvReac Type Severity Reaction Status Date / Time No Known Allergies Allergy Verified 07/14/23 13:40 Physical Exam Vitals: Vital Signs Temp Pulse Resp BP Pulse Ox 07/15/23 12:06 97.8 F 76 16 134/54 07/15/23 08:03 93 L 07/15/23 08:00 87 16 156/79 96 07/15/23 05:42 76 93 L 07/15/23 02:00 97.6 F 70 128/75 96 07/14/23 20:15 78 122/74 91 L 07/14/23 20:00 82 127/75 93 L 07/14/23 19:45 78 131/78 92 L 07/14/23 19:25 97.8 F 80 17 132/76 94 L 07/14/23 18:42 81 16 157/72 97 07/14/23 18:33 79 16 149/69 96 07/14/23 18:18 97 F L 83 18 163/78 94 L 07/14/23 14:19 70 16 154/75 96 07/14/23 13:51 97.5 F L 70 16 160/99 98 Intake and Output 07/14/23 07/15/23 07/15/23 22:59 06:59 14:59 Intake Total 1250 1250 Output Total 150 490 Balance 1100 760 Intake: IV 1250 Intake, IV Titration 1250 Amount Lactated Ringers 1,000 ml 1200 @ 100 mls/hr IV .Q10H [facility] Rx#:[id number] ceFAZolin 2 gm In Sodium 50 Chloride 0.9% 50 ml @ 100 mls/hr IVPB Q8HR [facility] Rx# :[id number] Output: Drainage 90 Left Lower Knee 90 Urine 400 Estimated Blood Loss 150 Other: Weight 104.5 kg Results 07/15/23 06:21 07/15/23 06:21 CBC 07/15/23 Range/Units 06:21 WBC 15.17 H (4.50-10.00) X 10*3/uL RBC 4.28 L (4.40-5.60) X 10*6/uL Hgb 13.0 (13.0-17.0) d/dL Hct 38.4 L (39.6-50.0) % Plt Count 223 (140-440) X 10*3/uL Comprehensive Metabolic Panel 07/15/23 Range/Units 06:21 Sodium 142 (135-145) mmol/L Potassium 3.7 (3.5-5.5) mmol/L Chloride 105 (96-109) mmol/L Carbon Dioxide 22.5 (21.6-31.8) mmol/L BUN 20.2 (9.0-27.0) mg/dL Creatinine 0.9 (0.6-1.5) mg/dL Glucose 162 H (70-110) mg/dL Calcium 9.0 (8.7-10.3) mg/dL Current Medications Generic Name Dose Route Start Last Admin Trade Name Freq PRN Reason Stop Dose Admin Hydrocodone Bitart/Acetaminophen 1 each 07/14/23 18:26 07/15/23 09:19 Hydrocodone/Apap 5-325mg 1 Each Tab PO 08/13/23 18:27 1 each Q6HR PRN Administration Pain Scale 1 to 5 Hydrocodone Bitart/Acetaminophen 2 each 07/14/23 18:26 Hydrocodone/Apap 5-325mg 1 Each Tab PO 08/13/23 18:27 Q6HR PRN Pain Scale 6 to 10 Amlodipine Besylate 5 mg 07/15/23 09:00 07/15/23 09:22 Amlodipine 5 Mg Tab PO 5 mg DAILY [facility] Administration Atenolol 25 mg 07/15/23 09:00 07/15/23 09:18 Atenolol 25 Mg Tab PO 25 mg QAM [facility] Administration Atenolol 50 mg 07/14/23 21:00 07/14/23 21:25 Atenolol 50 Mg Tab PO 50 mg HS [facility] Administration Fluticasone Propionate 2 puff 07/14/23 20:12 Fluticasone 110 Mcg Inhaler INHALATION RT-BID PRN Shortness Of Breath Hydrochlorothiazide 25 mg 07/15/23 09:00 07/15/23 09:18 Hydrochlorothiazide 25 Mg Tab PO 25 mg DAILY [facility] Administration Hydromorphone HCl 0.125 mg 07/14/23 18:26 Hydromorphone 0.5 Mg/0.5 Ml Syringe IVP 08/13/23 18:27 Q3HR PRN Pain Scale 1 to 3 Hydromorphone HCl 0.5 mg 07/14/23 18:26 Hydromorphone 0.5 Mg/0.5 Ml Syringe IVP 08/13/23 18:27 Q3HR PRN Pain Scale 7 to 10 Hydromorphone HCl 0.25 mg 07/14/23 18:26 Hydromorphone 0.5 Mg/0.5 Ml Syringe IVP 08/13/23 18:27 Q3HR PRN Pain Scale 4 to 6 Hydroxyzine Pamoate 25 mg 07/14/23 18:26 Hydroxyzine Pamoate 25 Mg Cap PO 08/13/23 18:27 Q4HR PRN Nausea, Anxiety, Pain Control Lactated Ringer's 1,000 mls @ 20 mls/hr 07/14/23 07:43 07/15/23 05:35 Lactated Ringers IV 08/13/23 07:44 Not Given .Q24H [facility] Lactated Ringer's 1,000 mls @ 100 mls/hr 07/14/23 18:30 07/15/23 05:32 Lactated Ringers IV 08/13/23 18:31 100 mls/hr .Q10H [facility] Administration Lidocaine HCl 0.1 ml 07/14/23 07:43 Lidocaine 1% (10mg/Ml) For Iv Start INTRADERMA 08/13/23 07:44 PER PROTOCOL PRN IV Start Losartan Potassium 100 mg 07/15/23 09:00 07/15/23 09:18 Losartan 50 Mg Tab PO 100 mg DAILY [facility] Administration Montelukast Sodium 10 mg 07/14/23 21:00 07/14/23 21:25 Montelukast 10 Mg Tab PO 10 mg HS [facility] Administration Naloxone HCl 0.2 mg 07/14/23 18:26 Naloxone 0.4 Mg/Ml 1 Ml Vial IV 08/13/23 18:27 Q2M PRN Opioid Reversal Ondansetron HCl 4 mg 07/14/23 18:26 Ondansetron 4 Mg/2 Ml Vial IVP 08/13/23 18:27 Q8HR PRN Nausea And Vomiting Rivaroxaban 20 mg 07/15/23 21:00 Rivaroxaban 20 Mg Tab PO HS [facility] Protocol Senna/Docusate Sodium 2 each 07/14/23 21:00 07/14/23 21:25 Sennosides-Docusate Sodium 1 Each Tab PO 08/13/23 21:01 2 each HS [facility] Administration Intake and Output 07/14/23 07/15/23 07/15/23 22:59 06:59 14:59 Intake Total 1250 1250 Output Total 150 490 Balance 1100 760 Intake: IV 1250 Intake, IV Titration 1250 Amount Lactated Ringers 1,000 ml 1200 @ 100 mls/hr IV .Q10H [facility] Rx#:[id number] ceFAZolin 2 gm In Sodium 50 Chloride 0.9% 50 ml @ 100 mls/hr IVPB Q8HR [facility] Rx# :[id number] Output: Drainage 90 Left Lower Knee 90 Urine 400 Estimated Blood Loss 150 Other: Weight 104.5 kg 07/15/23 06:21 07/15/23 06:21
[2023-07-15] MEDS ORDERED: RIVAROXABAN 20 MG TAB PO SCH (21:00)
== END 2023-07-15 14:02 | disposition home health service (06) ==
LOC: OR 13:09 → 4SSUR 18:35 → OR 07-15 14:02
PROVIDERS: ATTEND Orthopaedic Surgery
DX: M17.12 Unilateral primary osteoarthritis, left knee (principal); I48.91 Unspecified atrial fibrillation; I10 Essential (primary) hypertension; G47.33 Obstructive sleep apnea (adult) (pediatric); J44.9 Chronic obstructive pulmonary disease, unspecified; Z68.33 Body mass index [BMI] 33.0-33.9, adult; Z79.01 Long term (current) use of anticoagulants; Z86.718 Personal history of other venous thrombosis and embolism; Z79.899 Other long term (current) drug therapy
CPT/HCPCS: 0055T; 27447; 64447; 64999; 80048; 85025; 94760

== ENCOUNTER → 2025-04-16 | Outpatient (CLI) | payer MEDICARE ==
--- NOTE | 2025-04-16 13:15 | CT ---
EXAMINATION TYPE: CT brain wo con CT DLP: 1184.9 mGycm, Automated exposure control for dose reduction was used. DATE OF EXAM: 04/16/2025 12:57 PM COMPARISON: None. CLINICAL INDICATION:Male, 74 years old with history of R519 HEADACHE, UNSPECIFIED, Headache, no injur y TECHNIQUE: Brain: Multiple axial CT images of the brain were obtained without IV contrast. . Coronal and sagitta l reformats reviewed. FINDINGS: Brain: Extra-axial spaces: No abnormal extra-axial fluid collections. Ventricular system: Within normal limits Cerebral parenchyma: Mild cerebral atrophy. No acute intraparenchymal hemorrhage or mass effect. The celestin-white junction is well differentiated. Scattered hypoattenuating areas are seen within the wallace ventricular white matter. Cerebellum: Unremarkable. Mass effect: No evidence of midline shift. Intracranial vasculature: Atherosclerotic calcifications of the intracranial vessels. Soft tissues: Normal. Calvarium/osseous structures: No depressed skull fracture. Paranasal sinuses and mastoid air cells: The mastoid air cells are clear. Minimal mucosal thickening of the ethmoid sinuses. The frontal sinuses are clear. 1.2 cm mucous retention cyst within the right sphenoid sinus. The left sphenoid sinus is clear. Inferior left maxillary sinus 3.1 cm mucous retenti on cyst versus polyp. Subcentimeter mucous retention cyst within the right maxillary sinus. Visualized orbits: Orbital contents are intact. IMPRESSION: 1. No acute intracranial process. 2. Nonspecific mild white matter changes, likely secondary to chronic small vessel ischemic disease. [facility], , 04/16/2025 1:13 PM
== END | disposition home or self-care (01) ==
LOC: RADCTMAIN 12:44
PROVIDERS: ATTEND Family Medicine
DX: R90.82 White matter disease, unspecified (principal); R51.9 Headache, unspecified; R42 Dizziness and giddiness; I10 Essential (primary) hypertension
CPT/HCPCS: 70450